=== PATIENT | female | born 1975 | race Caucasian/White ===

== ENCOUNTER 2024-01-23 10:09 | Outpatient (CLI) | payer BC, SELFPAY ==
--- NOTE | ~2024-01-23 | CT_ITS ---
EXAMINATION: CT abdomen pelvis w con DATE: 01/23/2024 10:38 INDICATION: Right lower quadrant abdominal pain. TECHNIQUE: Computed tomography (CT) of the abdomen and pelvis was performed with 100 mL Omnipaque 350 intravenous contrast. Automated exposure control and iterative reconstruction technique were employe d. The dose-length product was 1257.59 mGy-cm. COMPARISON: None. FINDINGS: The visualized portions of the lung bases demonstrate minimal atelectasis. There is a 7 mm nodule in right lower lobe. No pleural effusion. The heart size is normal. No pericardial effusion. T here is a small sliding hiatal hernia. The liver, spleen, pancreas, adrenal glands, and kidneys are n ormal. There are changes of cholecystectomy. There is an intrauterine device in expected position. Th ere is diverticulosis of the colon without evidence of diverticulitis. There are no dilated loops of bowel. The appendix is normal. There is a 3.3 cm intramural uterine fibroid. There are no pathologica lly enlarged lymph nodes. There is no free intraperitoneal fluid. There is severe lumbar spondylosis. IMPRESSION: 1. 7 mm nodule in right lung lower lobe, probably benign. Noncontrast low-dose chest CT is recommende d in 6 months. 2. Small sliding hiatal hernia. 3. Uterine fibroid. Reviewed, dictated and finalized at location [facility]. [facility] IMPRESSION: 1. 7 mm nodule in right lung lower lobe, probably benign. Noncontrast low-dose chest CT is recommended in 6 months. 2. Small sliding hiatal hernia. 3. Uterine fibroid.
== END 2024-01-23 10:10 | disposition home or self-care (01) ==
PROVIDERS: PCP Pediatrics; Visit Provider Family Medicine
DX: R91.1 Solitary pulmonary nodule (principal); K44.9 Diaphragmatic hernia without obstruction or gangrene; D25.9 Leiomyoma of uterus, unspecified; R10.31 Right lower quadrant pain; K35.80 Unspecified acute appendicitis
CPT/HCPCS: 74177; Q9967

== ENCOUNTER 2024-01-23 13:18 | Day surgery (SDC) | payer BC, SELFPAY ==
[2024-01-23] VITALS (8 sets, daily range): BP systolic 90–171; BP diastolic 60–103; PULSE 50–104; RESP 15–18; TEMP 36.6–36.8; O2SAT 97–100; BMI 33.9
--- NOTE | 2024-01-23 14:45 | ECG_ITS ---
Test Date: 2024-01-23 15:01:41 Measurements Intervals [place] Rate: 82 P: 52 [place]: 170 QRS: 8 QRSD: 98 T: -3 QT: 383 QTc: 448 Interpretive Statements SINUS RHYTHM MINIMAL Q WAVES- HIGH LATERAL LEADS BORDERLINE ST-T WAVE ABNORMALITY- INFERIOR LEADS BASELINE ARTIFACT- I, II, AVR BORDERLINE ECG No previous ECG available for comparison Electronically Signed On 01-23-2024 15:33:35 PEST TECHNICIAN by Alonso Wan D.O.
--- NOTE | 2024-01-23 15:03 | WPDANESEPPF ---
Anes - Initial Pre Proc Eval Procedure: Operation Date: 01/23/24 15:45 Proposed Procedures p Diagnostic Laparoscopy, Possible Laparoscopic Appendectomy - Gustabo Cobb MD Date/Time: 01/23/24 15:03 Surgeon: Gustabo Cobb MD Pre Op Diagnosis: abdominal pain, appendicitis Patient Data Age: 48 Gender: F Height: 1.75 m Weight: 104.1 kg Last Vital Signs Temp 36.6 C 01/23/24 14:14 Pulse 104 H 01/23/24 14:14 BP 171/103 H 01/23/24 14:14 Pulse Ox 97 01/23/24 14:14 O2 Del Method Room Air 01/23/24 14:14 Allergies Allergy/AdvReac Type Severity Reaction Status Date / Time codeine AdvReac Severe Hyperactive Verified 01/23/24 14:55 hydrocodone AdvReac Severe HYPER Verified 01/23/24 14:55 morphine AdvReac Mild Hyperactive Verified 01/23/24 14:55 FEELING Home Medications Medication Instructions Recorded Confirmed Type cetirizine 10 mg capsule (Zyrtec) 10 mg PO DAILY PRN allergies 01/23/24 01/23/24 History famotidine 40 mg tablet 40 mg PO DAILY 01/23/24 01/23/24 History multivitamin 1 tablet PO DAILY 01/23/24 01/23/24 History Patient hx anesthesia problems: post op nausea/vomiting Family hx anesthesia problems: none Results Review: All pre-operative results and documents have been reviewed as part of the pre-operative evaluation. [facility] Past Medical History Medical History (Updated 01/23/24 @ 15:09 by Conor Bolanos DO) History of atrial fibrillation Surgical History Surgical History (Updated 01/23/24 @ 12:28 by Merle Rodrigez CMA) H/O cardiac radiofrequency ablation 2020 Hx laparoscopic cholecystectomy Hx of section 1999, 2004 Family History Family History (Updated 01/23/24 @ 12:29 by Merle Rodrigez CMA) Father Hypertension Mother Diabetes mellitus Hypertension Uterine cancer Ovarian cancer Grandparent Diabetes mellitus Hypertension Heart disease Cerebrovascular accident Social History Social History (Updated 01/23/24 @ 12:29 by Merle Rodrigez CMA) Smoking packs per day: 1 Smoking cigarettes per day: 20.0 Years smoked: 11 Smoking pack-years: 11.00 Smoking status: Former smoker Tobacco type: cigarettes Alcohol intake: never Current Housing: Decline to Answer Concerned About Future Housing: Decline to Answer Difficulty Paying Gas/Electric Bills: Decline to Answer Difficulty Paying for Meds: Decline to Answer Currently Unemployed: Decline to Answer Education: Decline to Answer Difficulty w/ Childcare or Family Care: Decline to Answer Living arrangements: with family Spiritual care concerns: No Anes - Eval Final PreProcedure Day of Procedure 01/23/24 15:03 Patient weight: obese Heart: regular rate and rhythm Lungs: clear to auscultation Airway: Mallampati scale class II Neurological: alert and oriented Last oral intake: >/= 8 hours ASA classification: III Emergent: no Anesthetic plan: proceed Anesthesia type and monitoring: general ETT and standard monitoring Results Review: All pre-operative results and documents have been reviewed as part of the pre-operative evaluation. Informed Consent: The patient's anesthetic plan and its attendant risks and benefits were discussed with the patient/family/POA. Questions were solicited and answers provided to the satisfaction of the patient/family/POA.
[2024-01-23] MEDS: SCOPOLAMINE 1 MG PATCH 1 PATCH TRANSDERM (15:18)
[2024-01-23] MEDS: LACTATED RINGERS 1,000 ML 30 ML IV CONT ×2 (15:18→19:20)
--- NOTE | 2024-01-23 17:02 | WPDHPUPDATE1 ---
History and Physical Update Update Date/Time: 01/23/24 17:02 History and Physical has been reviewed, including an updated exam of the patient. There are NO changes in the patient's condition. Risks, benefits, and alternatives have been discussed and questions answered. Patient agrees to proceed with procedure.
[2024-01-23] MEDS: ceFAZolin 2 GM/D5W 50 ML 2 GM/50 ML BAG IVPB (17:06)
[2024-01-23] MEDS: metroNIDAZOLE 500 MG/ISO 100ML 500 MG/100 ML BAG 100 MG IVPB (17:15)
[2024-01-23] MEDS: BUPIVACAINE/EPINEPHRINE 0.5% 50 ML VIAL INFILTRATE (17:36)
[2024-01-23] MEDS: HYDROmorphone HCL INJ (*CRX) 1 MG/ML SYR 0.25 MG IV PUSH ×4 (18:11→18:28)
--- NOTE | 2024-01-23 18:34 | W.PM.PROC2 ---
Procedure Note - Detailed Date of Procedure 01/23/24 Pre-op Diagnosis abdominal pain, appendicitis Post-op Diagnosis Other (Right lower quadrant pain) Procedure Performed Diagnostic laparoscopy, laparoscopic appendectomy Surgeon Gustabo Cobb MD Industrial Registered Nurse Sil Anesthesia General and Local Indications Patient began developing right lower quadrant abdominal pain early this morning. It worsened and was quite severe. 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 Palacios. She had classic signs and symptoms of appendicitis, however her CT scan was negative for appendicitis or other diagnosis that could cause her pain. Her white blood cell count was normal and CMP was normal. She came to my office and was evaluated. She was feeling somewhat better but still had peritoneal signs of referred tenderness and rebound tenderness in the right lower quadrant. She is taken to surgery now for diagnostic laparoscopy possible appendectomy. Findings I could find no source for the patient's pain. Her appendix did not appear to be inflamed but the distal half of the appendix did seem to be thickened or mildly dilated. There was no hypervascularity or erythema. No evidence of mesenteric adenitis, ruptured ovarian cyst, or other explanation. No Meckel's diverticulitis or evidence of Crohn's ileitis was seen. She did have a fibroid, enlarged uterus. This is an unlikely source of her pain. Description of Procedure Patient was taken to the operating room and induced into general anesthesia. Laparoscopic trocars were placed on the left side of the abdomen in the usual fashion using an applied Medical optical trocar and placing 2 5 mm ports and a left lower quadrant 10 11 port. Patient was placed in Trendelenburg with the right-side elevated. The cecum and appendix were easily found. As noted above, the appendix was only mildly abnormal and did not appear consistent with appendicitis. I looked in the pelvis with the above findings. I took photographs of both tubes and ovaries. I looked for Meckel's diverticulum and did not find 1. I looked for any distal ileal pathology such as inflammatory bowel disease or mesenteric adenitis and did not see any evidence of either. The cecum also appeared normal. The mesentery appeared normal. I elevated the appendix and dissected the mesoappendix. The appendiceal artery was thoroughly cauterized and divided. I dissected the additional tissues of the mesoappendix and eventually skeletonized the base of the appendix. The appendix was ligated with a Vicryl endoloop at its base. Appendix was amputated just above the ligature. The mucosa of the appendiceal stump was cauterized. The appendix was placed immediately in an Endo-Catch bag and retrieved through the 10 11 left lower quadrant trocar site. It was passed off to pathology in formalin. The left lower quadrant trocar was replaced. Review reviewed the areas of dissection and appendix removal and took another look in the pelvis and right lower quadrant. No new findings were appreciated. We then evacuated CO2 and removed the trocar sleeves. Skin wounds were closed with subcuticular 4-0 Monocryl skin suture. 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 Estimated Blood Loss -5 Drains No Packing No Pathology Yes (Appendix) Complications None Condition Stable Disposition PACU [facility] Billing Surgery - Charge Forward: Surgery Billing (Diagnostic laparoscopy, laparoscopic appendectomy)
--- NOTE | 2024-01-23 18:42 | SUR.PHASEI ---
PT STATES PAIN FEELS GASSY DENIES PAIN MEDICATION AT THIS TIME.
[2024-01-23] MEDS: ONDANSETRON INJ 4 MG/2 ML VIAL IV PUSH (19:10)
[2024-01-23] MEDS: FAMOTIDINE 20 MG/2 ML VIAL IV PUSH (19:31)
[2024-01-23] MEDS: diphenhydrAMINE HCl INJ 50 MG/ML VIAL 25 MG IV PUSH (19:31)
== END 2024-01-23 20:10 | disposition home or self-care (01) ==
PROVIDERS: PCP Pediatrics; Visit Provider Surgery
PROC: 0DTJ4ZZ Resection of Appendix, Percutaneous Endoscopic Approach (ICD-10-PCS; CPT 44970; principal; 2024-01-23 15:45)
DX: R10.31 Right lower quadrant pain (principal); D25.9 Leiomyoma of uterus, unspecified; N85.2 Hypertrophy of uterus; I48.91 Unspecified atrial fibrillation; E66.9 Obesity, unspecified; Z68.33 Body mass index [BMI] 33.0-33.9, adult; Z98.890 Other specified postprocedural states; Z90.49 Acquired absence of other specified parts of digestive tract; Z87.891 Personal history of nicotine dependence; Z86.79 Personal history of other diseases of the circulatory system; Z80.49 Family history of malignant neoplasm of other genital organs; Z80.41 Family history of malignant neoplasm of ovary; Z82.49 Family history of ischemic heart disease and other diseases of the circulatory system
CPT/HCPCS: 44970; 88304; 93005; A9270; J0690; J1171; J1200; J1836; J2250; J2405; J3010; J7030; J7120

== ENCOUNTER 2024-05-19 11:03 | Outpatient (CLI) | payer BC, SELFPAY | END 2024-05-19 11:04 | disposition home or self-care (01) | PROVIDERS: PCP Pediatrics; Visit Provider Obstetrics & Gynecology | DX: D25.9 Leiomyoma of uterus, unspecified (principal) | CPT/HCPCS: 76830; 76856 ==

== ENCOUNTER 2024-08-18 08:19 | Outpatient (CLI) | payer OTHER, SELFPAY ==
--- NOTE | ~2024-08-18 | CT_ITS ---
CT Scan of the Chest without Contrast: Clinical Indication: Pulmonary nodule Technique: Contiguous sections were acquired throughout the chest without intravenous contrast. Dose reduction technique was used on this scan by utilizing automated exposure control and iterative recon struction technique. The dose-length product (DLP) was 126.14 mGy-cm. COMPARISON: 01/23/2024 Findings: There is no evidence of any significant mediastinal, hilar or axillary lymphadenopathy. The mediastin al soft tissues appear normal. There is no evidence of pleural or pericardial effusion. 9 mm mildly irregular right lower lobe pulmonary nodule present (axial image 76), unchanged. Images through the upper abdomen reveal no abnormalities. Impression: Stable 9 mm right lower lobe pulmonary nodule. Reviewed, dictated and finalized at location . Impression: Stable 9 mm right lower lobe pulmonary nodule.
== END 2024-08-18 08:20 | disposition home or self-care (01) ==
LOC: MICIMG 08:20
PROVIDERS: PCP Pediatrics; Visit Provider Family Medicine
DX: R91.1 Solitary pulmonary nodule (principal)
CPT/HCPCS: 71250

== ENCOUNTER 2025-03-16 12:11 | Outpatient (CLI) | payer OTHER, SELFPAY ==
--- NOTE | ~2025-03-16 | US_ITS ---
EXAMINATION: US FNA w image guidance DATE: 03/16/2025 13:24 INDICATION: Right thyroid nodule TECHNIQUE: A time-out was performed to verify the patient's name, date of , and procedure to be performed. The procedure and its benefits and risks were discussed with the patient. Risks specifically discussed included bleeding and infection. The patient understood the risks and agreed to proceed. The neck was prepped and draped in the usual sterile manner. 2 mL 1% lidocaine was used for local anesthesia. 5 passes were made with a 25G needle into the lesion. Appropriate needle location was documented with continuous sonographic guidance. A sterile bandage was applied. There were no immediate complications. FINDINGS: Grayscale ultrasound images demonstrate biopsy needles advanced into into a 1.3 cm solid hypoechoic nodule with irregular margins and internal shadowing calcifications at the right thyroid lobe (TI-RADS 5, highly suspicious , FNA if >=1.0 cm, annual followup is >0.5 cm). IMPRESSION: 1. Successful ultrasound-guided fine needle aspiration of a 1.3 cm TI RADS 5 right thyroid nodule. Reviewed, dictated and finalized at location A. NER IMPRESSION: 1. Successful ultrasound-guided fine needle aspiration of a 1.3 cm TI RADS 5 r ight thyroid nodule.
--- OUTSIDE RECORDS SUMMARY | 2025-03-16 12:37 | XMS_ITS | Encounter Summary ---
Author Organization [facility] Address [facility]ly [facility] [place] [address] Care Team Providers Care Clipper Operator Name Role Phone Armando Stephens MD Primary Care Provider [phone] Chase Walsh MD Unavailable [phone] Petra Pineda MD, Dell Unavailable [phone] Jewel Hawthorne MD Unavailable [phone] Salvatore Yeboah MD Unavailable [phone] Jamie Desir NP Unavailable [phone] Encounter Details Date Type Department Care Team (Late st Contact Info) Description 06/14/2014 Abstract [facility] [address] [place] [id number] Dell Lambert MD [address] [phone] Social History Tobacco Use Types Packs/Day Years Used Date Smoking Tobacco: Former Cigarettes Q uit: 03/2002 Alcohol Use Standard Drinks/Week Comments No 0 (1 standard drink = 0.6 oz pur e alcohol) Comments Unknown Sex and Gender Information Value Date Recorded Sex Assigned at Female 11/03/2024 2:01 PM CDT Legal Sex Female 11:53 PM CDT Gender Identity Not on file Sexual Orientation Not on file 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 Not on file Not on file 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 Not on file Not on file Not on file documented as of this encounter Plan of Treatment Upcoming Encounters Date Type Department Care Team (Late st Contact Info) Description 04/12/2025 1:00 AM IC DESIGN MANAGER Allied Health/Nurse Visit [address] [phone] Salvatore Yeboah MD [address] [place] [phone] 06/08/2025 9:45 AM CDT Allied Health/Nurse Visit [address] [phone] Salvatore Yeboah MD [address] [place] [phone] 06/08/2025 9:45 AM CDT Office Visit [address] [phone] Salvatore Yeboah MD [address] [place] [phone] documented as of this encounter Visit Diagnoses Not on filedocumented in this encounter Additional Health Concerns Infection Onset Date Last Indicated Resolved Time COVID-19 Rule Out 09/23/2019 09/29/2019 09/30/2019 6:28 PM CDT documented as of this encounter Care Teams Clipper Operator Relationship Specialty Start Date End Date Armando Stephens MD [address] [place] [address] PCP - General PEDIATRICS 09/26/15 Chase Walsh MD [address] [place] [phone] [employer] Instructor CARDIOVASCULAR DISEASE 01/28/17 08/26/24 Dell Lambert MD [address] [place] [phone] [employer] Instructor CARDIOVASCULAR DISEASE 04/30/17 Jewel Hawthorne MD [address] [place], [place] [phone] [employer] Instructor CARDIOVASCULAR DISEASE 07/24/21 11/27/22 Salvatore Yeboah MD [address] [place] [phone] Consulting Physician CLINICAL CARDIAC ELECTROPHYSIOLOGY 08/27/24 Jamie Desir NP [address] [place] [address] Nurse Practitioner NURSE PRACTITIONER 08/27/24 documented as of this encounter
--- OUTSIDE RECORDS SUMMARY | 2025-03-16 12:37 | XMS_ITS | Encounter Summary ---
Author Organization [facility] Address [facility] [place] [address] Care Team Providers Care Microeconomics Professor Name Role Phone Armando Stephens MD Primary Care Provider [phone] Petra Pineda MD, Dell Unavailable [phone] Salvatore Yeboah MD Unavailable [phone] Jamie Desir NP Unavailable [phone] Encounter Details Date Type Department Care Team (Late st Contact Info) Description 02/22/2025 Hospital Follow-up Call [facility] [address] [place] [address] Jess Post RN Social History Tobacco Use Types Packs/Day Years Used Date Smoking Tobacco: Former Cigarettes 0 03/18/1992 - 03/18/2002 Smokeless Tobacco: Never Alcohol Use Standard Drinks/Week Comments No 0 (1 standard drink = 0.6 oz pur e alcohol) Humiliation, Afraid, Rape, and Kick questionnair e Answer Date Recorded Within the last year, have y ou been afraid of your partner or ex-partner? No 02/18/2025 Within the last year, have y ou been humiliated or emotionally abused in other ways by your partner or ex-partner? No Within the last year, have y ou been kicked, hit, slapped, or otherwise physically hurt by your partner or ex-partner? No 02/18/2025 Within the last year, have y ou been raped or forced to have any kind of sexual activity by your partner or ex-partner? No 02/18/2025 Overall Financial Resource Strain (CARDIA) Answe r Date Recorded How hard is it for you to pa y for the very basics like food, housing, medical care, and heating? Not very hard 02/18/2025 Hunger Vital Sign Answer Date Recorded Within the past 12 months, y ou worried that your food would run out before you got the money to buy more. Never true 02/19/20 25 Within the past 12 months, t he food you bought just didn't last and you didn't have money to get more. Never true 02/18/2025 PRAPARE - Transportation Answer Date Re corded In the past 12 months, has l ack of transportation kept you from medical appointments or from getting medications? No 06/2024 In the past 12 months, has l ack of transportation kept you from meetings, work, or from getting things needed for daily living? No 02/18/2025 Housing Stability Vital Sign Answer Nitish e Recorded In the last 12 months, was t here a time when you were not able to pay the mortgage or rent on time? No 02/18/2025 In the past 12 months, how m any times have you moved where you were living? 0 02/18/2025 At any time in the past [address] [facility], were you homeless or living in a assisted (including now)? No 02/18/2025 [facility] Utilities Answer Date Recorded In the past 12 months has th e electric, gas, oil, or water company threatened to shut off services in your home? No 02/18/2025 Comments No Sex and Gender Information Value Date Recorded [...] on file documented as of this encounter Functional Status * Are you deaf or do you have serious difficulty hearing Answer Date of Assessment Author Status No 02/18/2025 8:34 AM Kathrine Olson, RN Active * Are you blind or do you have serious difficulty seeing, even when wearing glasses? Answer Date of Assessment Author Status No 02/18/2025 8:34 AM Kathrine Olson RN Active * Do you have serious difficulty walking or climbing stairs? Answer Date of Assessment Author Status No 02/18/2025 8:34 AM Kathrine Olson RN Active * Do you have difficulty dressing or bathing? Answer Date of Assessment Author Status No 02/18/2025 8:34 AM Kathrine Olson RN Active * Because of a physical, mental, or emotional condition, do you have difficulty doing errands alone such as visiting a doctor's office or shopping? Answer Date of Assessment Author Status No 02/18/2025 8:34 AM Kathrine Olson RN Active documented as of this encounter Mental Status * Because of a physical, mental, or emotional condition, do you have serious difficulty concentrating, remembering, or making decisions? Answer Entry Date Author Status No 02/18/2025 8:34 AM Kathrine Olson RN Active documented in this encounter Plan of Treatment Upcoming Encounters Date Type Department Care Team (Late st Contact Info) Description 04/12/2025 1:00 AM BAND SINGER Allied Health/Nurse Visit [address] [phone] Salvatore Yeboah MD [address] [place] [phone] 06/08/2025 9:45 AM CDT Allied Health/Nurse Visit [address] [phone] Salvatore Yeboah MD [address] [place] [phone] 06/08/2025 9:45 AM CDT Office Visit [address] [phone] Salvatore Yeboah MD [address] [place] [phone] documented as of this encounter Visit Diagnoses Not on filedocumented in this encounter Care Teams Microeconomics Professor Relationship Specialty Start Date End Date Armando Stephens MD [address] [place], [place] [phone] PCP - General PEDIATRICS 09/26/15 Dell Lambert MD [address] [place] [address] [employer] Strategy Director CARDIOVASCULAR DISEASE 04/30/17 Salvatore Yeboah MD [address] [facility] [address] [address] Consulting Physician CLINICAL CARDIAC ELECTROPHYSIOLOGY 08/27/24 Jamie Desir NP [address] [place] [address] Nurse Practitioner NURSE PRACTITIONER 08/27/24 documented as of this encounter
--- OUTSIDE RECORDS SUMMARY | 2025-03-16 12:37 | XMS_ITS | Patient Health Record ---
Author Organization [facility] Address [address] [place] [address] Care Team Providers Care Labor Conciliator Name Role Phone Dr. Lawrence Grant Primary Care Provider [id number] [phone] Dr. Kayla Palacios Unavailable [phone] Gokul Owusu Unavailable [phone] Corazon Gates Unavailable [phone] Allergies Allergen (clinical drug ingredient) Drug/Non Drug Allergy documented on EMR Reaction Allergy Type Onset Date Status amoxicillin / clavulanate Augmentin ES-600 itching Drug Allergy 11/06/2023 Active fentanyl fentaNYL dizziness chills Drug Allergy 03/21/2021 Active penicillin V Penicillin V Potassium itching Drug Allergy 11/06/2023 Active apple allergenic extract Apple (Diagnostic) Unknown Drug Allergy 03/01/2022 Active Skin Adhesive (external) rash blisters from heart monitor adhesive Allergy 03/01/2022 Active Results Component Value Reference Range Flag Notes ECG 12-LEAD Reviewed date:01/04/2025 08:54:24 AM Interpretation: Performing Lab: Notes/Report: HFG Test Date: 2025-01-03 Pat Name: ILA BRUSH Department: 100 Room: ED4 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 [address] Examination: X-ray chest, 1 view Exam time: 01/03/2025 at 0735 hours Clinical history: Chest pain.Chest pressure/pain x 3-5am this morning. Comparison: 11/07/2019 Technique: Single frontal upright view of the chest obtained. FINDINGS: No parenchymal consolidation. No discrete pneumothorax or large pleural effusion. Cardiomediastinal silhouette unchanged. Loop recorder device. IMPRESSION: No acute findings. 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 : 1975 Requested By: WILLIAN VERDUGO Order Number: [id number] Reading MD: Darvin Mckeon Measurements Intervals [place] Rate: 76 P: 0 OR: 0 QRS: 5 QRSD: 98 T: 11 QT: 378 QTc: 427 Interpretive Statements ATRIAL FIBRILLATION ABNORMAL RHYTHM ECG PET EYE TO THIGH (Not yet re viewed by provider) Interpretation: Performing Lab: Notes/Report: Covid DNA Alere Reviewed date:11/20/2024 08:24:59 AM Interpretation:Negative Performing Lab: Notes/Report: Negative MAMMOGRAM, SCREENING Reviewed date:08/28/2024 09:26:02 AM Interpretation:BiRads 2 Performing Lab: Notes/Report: BiRads 2 US THYROID Reviewed date:03/05/2025 05:50:22 PM Interpretation: Performing Lab: Notes/Report: [address] [place] [address] ULTRASOUND OF THE THYROID CLINICAL HISTORY: Thyroid nodule High-resolution grayscale and color Doppler ultrasound was performed over the thyroid. COMPARISON: None FINDINGS: Right lobe: 5.3 x 2.2 x 1.4 cm in greatest dimensions Left lobe: 4.7 x 1.8 x 1.1 cm Isthmus: 3.9 mm in thickness The overall size of the gland is within normal limits. On the right there is an irregular hypoechoic nodule that measures 1.1 x 1.3 x 1.0 cm in greatest dimensions. The overall appearance is nonspecific. Reportedly, this nodule is FDG avid and therefore biopsy could be considered but may be difficult or nondiagnostic due to the small size. No additional nodules are observed. The surrounding soft tissues appear normal IMPRESSION: 1.Irregular probably hypoechoic nodule within the mid right thyroid. 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1975 Requested By: WILLIAN VERDUGO Order Number: [id number] Reading MD: Darvin Mckeon Measurements Intervals [place] Rate: 97 P: 47 OR: 166 QRS: 28 QRSD: 93 T: 31 QT: 346 QTc: 441 Interpretive Statements SINUS RHYTHM Vitamin B12 Reviewed date:10/09/2024 09:28:10 PM Interpretation: Performing Lab: Notes/Report: Test Performed by: [address] [address] Wind Site Manager: Dell Xavier DO Vitamin B12 Lvl 469 180-914 pg/mL Vitamin B12 Interpretation: Normal Range: 180-914 pg/mL Indeterminate: 140-180 pg/mL Deficient: <140 pg/mL Magnesium Reviewed date:10/09/2024 09:28:10 PM Interpretation: Performing Lab: Notes/Report: Test Performed by: [address] [place] [address] Wind Site Manager: Dell Xavier DO Magnesium Lvl 2.0 1.6-2.4 mg/dL Lipid Panel {Chol, Trig, HDL , LDL} Reviewed date:10/09/2024 09:28:10 PM Interpretation: Performing Lab: Notes/Report: Test Performed by: [place] [address] Wind Site Manager: Dell Xavier DO Cholesterol Total 171 <=199 mg/dL Triglycerides 127 0-149 mg/dL Triglyceride Reference Ranges: <150 mg/dL Normal 150 - 199 mg/dL Borderline High 200 - 499 mg/dL High >=500 mg/dL Very High LDL 107 <=100 mg/dL H LDL Optimal: <100 Near or above optimal: 100-129 Borderline high: 130-159 High: 160-189 Very high: >=190 Coronary heart disease risk factors should be considered when determining LDL goals. Please refer to ATPIII guidelines for further information. If LDL is not calculated, please call the lab to add on the direct LDL methodology, if desired. HDL 38 23-92 mg/dL Non HDL Cholesterol 132 <=130 mg/dL H Chol/HDL 4 0-5 Comprehensive Metabolic Pane l Reviewed date:10/09/2024 09:28:10 PM Interpretation: Performing Lab: Notes/Report: Test Performed by: [place] [id number] Wind Site Manager: Dell Xavier DO Glucose Lvl 91 74-109 mg/dL ADA risk stratification for diabetes <100 mg/dL = Normal 100-125 mg/dL = Increased risk for future diabetes >=126 mg/dL = Diabetes, if on more than one testing occasion BUN 14 7-25 mg/dL Creatinine Lvl 0.70 0.60-1.20 mg/dL eGFR CKD-EPI >90 >=90 mL/min/1.73 m2 The CKD-EPI equation is validated in individuals 18 years of age and older. It is less accurate in patients with extremes of muscle mass, restriction of dietary protein, ingestion of creatine, extra-renal metabolism of creatinine, or treatment with medications that affect renal tubular creatinine secretion. GFR Categories in Chronic Kidney Disease (CKD) GFR GFR (mL/min/1.73 Category: square meters): Interpretation: G1 90 or greater Normal or high* G2 60-89 Mild decrease* G3a 45-59 Mild to moderate decrease G3b 30-44 Moderate to severe decrease G4 15-29 Severe decrease G5 14 or less Kidney failure *In the absence of evidence of kidney damage, neither GFR category G1 nor G2 fulfill the criteria for CKD (Kidney Int Suppl 2013;3:1-150) Calcium Lvl 9.6 8.6-10.3 mg/dL Sodium Lvl 139 136-145 mmol/L Potassium Lvl 3.8 3.5-5.1 mmol/L Chloride Lvl 103 98-107 mmol/L CO2 30 21-31 mmol/L Anion Gap 6.5 <=16.0 mmol/L Alk Phos 57 34-104 unit/L Bilirubin Total 0.7 0.3-1.0 mg/dL Albumin Lvl 4.6 3.5-5.2 g/dL Protein Total 7.2 6.4-8.9 g/dL Albumin/Globulin Ratio 1.8 1.1-2.5 ALT 14 7-52 unit/L AST 13 13-39 unit/L CBC w Auto Diff Reviewed date:10/09/2024 09:28:10 PM Interpretation: Performing Lab: Notes/Report: Test Performed by: [place] [address] Wind Site Manager: Dell Xavier DO WBC 6.3 4.0-11.7 K/mcL RBC 4.76 3.80-5.41 x10*6/mcL Hgb 14.4 11.3-15.2 g/dL Hct 41.4 33.2-45.3 % MCV 87.0 79.5-98.1 fL MCH 30.2 27.0-34.2 pg MCHC 34.7 31.8-35.3 g/dL RDW 13.7 12.0-16.4 % Platelets 241 149-393 K/mcL MPV 9.8 7.0-11.0 fL Neutro Auto 59.1 45.3-79.0 % Lymph Auto 30.8 11.8-45.9 % [place] Auto 8.3 4.4-12.0 % Eosinophil Auto 1.5 0.0-6.3 % Basophil Auto 0.3 0.2-1.6 % Neutro Absolute 3.7 2.4-8.4 x10*3/mcL Lymph Absolute 1.9 0.8-3.7 x10*3/mcL [place] Absolute 0.5 0.3-1.1 x10*3/mcL Eos Absolute 0.1 0.0-0.5 x10*3/mcL RP2 Panel Reviewed date:03/03/2025 08:21:54 AM Interpretation: Performing Lab: Notes/Report: Test Performed by: [place] [id number] Wind Site Manager: Dell Xavier DO Adenovirus PCR Not Detected Not Detected Bordetella pertussis PCR Not Detected Not Detected Bordetella Parapertussis [id number] PCR Not Detected Not Detected Chlamydophila pneumoniae PCR Not Detected Not Detected Coronavirus 229E PCR Not Detected Not Detected Coronavirus HKU1 PCR Not Detected Not Detected Coronavirus NL63 PCR Not Detected Not Detected Coronavirus OC43 PCR Not Detected Not Detected SARS-CoV-2 PCR Not Detected Not Detected Human Metapneumovirus PCR Not Detected Not Detected Human Rhinovirus PCR Detected Not Detected A Influenza A PCR Not Detected Not Detected Influenza B PCR Not Detected Not Detected Parainfluenza Virus 1 PCR Not Detected Not Detected Parainfluenza Virus 2 PCR Not Detected Not Detected Parainfluenza Virus 3 PCR Not Detected Not Detected Parainfluenza Virus 4 PCR Not Detected Not Detected Respiratory Syncytial Virus PCR Not Detected Not Detected Mycoplasma pneumoniae PCR Not Detected Not Detected ABBT Coronavirus [facility] {COVI D-19} Reviewed date:03/03/2025 08:21:54 AM Interpretation: Performing Lab: Notes/Report: Test performed at [address] [address] [facility]#[id number] Test Performed by: [address] [address] Wind Site Manager: Dell Xavier DO SARS-CoV-2 (Covid19) ABBT Negative Negative ID NOW COVID-19 assay performed on the ID NOW Instrument is a rapid molecular in vitro diagnostic test utilizing an isothermal nucleic acid amplification technology intended for the qualitative detection of nucleic acid from the SARS-CoV-2 viral RNA in direct nasal, nasopharyngeal or throat swabs from individuals who are suspected of COVID-19 by their healthcare provider within the first seven days of the onset of symptoms. Results are for the identification of SARS-CoV-2 RNA. The [id number] is generally detectable in respiratory samples during the acute phase of infection. Positive results are indicative of the presence of SARS-CoV-2 RNA; clinical correlation with patient history and other diagnostic information is necessary to determine patient infection status. Positive results do not rule out bacterial infection or co-infection with other viruses. Negative results should be treated as presumptive and, if inconsistent with clinical signs and symptoms or necessary for patient management, should be tested with different authorized or cleared molecular tests. Negative results do not preclude SARS-CoV-2 infection and should not be used as the sole basis for patient management decisions. Negative results should be considered in the context of a patient?s recent exposures, history and the presence of clinical signs and symptoms consistent with COVID-19. The ID NOW COVID-19 test is only for use under the Food and Drug Administration?s Emergency Use Authorization. Covid 19 Perform Location [facility] Miscellaneous Lab Test 1 Reviewed date:03/03/2025 08:21:54 AM Interpretation: Performing Lab: Notes/Report: Test Performed by: [place] [id number] Wind Site Manager: Dell Xavier DO [facility] Lab: Result Misc Reordered MRI : Lumbosacral Spines Reviewed date:12/11/2024 11:56:24 AM Interpretation:not completed, denied by insurance. Performing Lab: Notes/Report: not completed, denied by insurance. Hemoglobin Reviewed date:12/10/2024 10:19:27 AM Interpretation:12.3 Performing Lab: Notes/Report: 12.3 MRI : Brain Reviewed date:12/18/2024 02:50:42 PM Interpretation: Performing Lab: Notes/Report: FSH LH Profile Reviewed date:12/10/2024 11:09:33 AM Interpretation: Performing Lab: Notes/Report: Test Performed by: [address] [address] Wind Site Manager: Dell Xavier DO FSH 79.3 FSH Normal Ranges: Females Follicular: 4 - 13 mIU/mL Midcycle: 5 - 22 mIU/mL Luteal: 1.5 - 9.1 mIU/mL : <1.0 mIU/mL Postmenopausal: 20-138 mIU/mL Males: 1.5 - 12.4 mIU/mL LH 22.4 LH Normal Ranges: Females Follicular: 1.7 - 15.0 mIU/mL Midcycle: 19.2 - 103.3 mIU/mL Luteal: 1.2 - 12.9 mIU/mL : <16 mIU/mL Postmenopausal: 10.9 - 58.6 mIU/mL Males: 1.24 - 8.62 mIU/mL Thyroid Stimulating Hormone Reviewed date:12/10/2024 11:09:33 AM Interpretation: Performing Lab: Notes/Report: Test Performed by: [place] [address] Wind Site Manager: Dell Xavier DO TSH 0.93 0.45-5.33 mcIU/mL Comprehensive Metabolic Pane l Reviewed date:12/10/2024 11:09:33 AM Interpretation: Performing Lab: Notes/Report: Test Performed by: [place] [address] Wind Site Manager: Dell Xavier DO Glucose Lvl 93 74-109 mg/dL ADA risk stratification for diabetes <100 mg/dL = Normal 100-125 mg/dL = Increased risk for future diabetes >=126 mg/dL = Diabetes, if on more than one testing occasion BUN 14 7-25 mg/dL Creatinine Lvl 0.66 0.60-1.20 mg/dL eGFR CKD-EPI >90 >=90 mL/min/1.73 m2 The CKD-EPI equation is validated in individuals 18 years of age and older. It is less accurate in patients with extremes of muscle mass, restriction of dietary protein, ingestion of creatine, extra-renal metabolism of creatinine, or treatment with medications that affect renal tubular creatinine secretion. GFR Categories in Chronic Kidney Disease (CKD) GFR GFR (mL/min/1.73 Category: square meters): Interpretation: G1 90 or greater Normal or high* G2 60-89 Mild decrease* G3a 45-59 Mild to moderate decrease G3b 30-44 Moderate to severe decrease G4 15-29 Severe decrease G5 14 or less Kidney failure *In the absence of evidence of kidney damage, neither GFR category G1 nor G2 fulfill the criteria for CKD (Kidney Int Suppl 2013;3:1-150) Calcium Lvl 9.4 8.6-10.3 mg/dL Sodium Lvl 136 136-145 mmol/L Potassium Lvl 3.6 3.5-5.1 mmol/L Chloride Lvl 101 98-107 mmol/L CO2 27 21-31 mmol/L Anion Gap 8.2 <=16.0 mmol/L Alk Phos 61 34-104 unit/L Bilirubin Total 0.8 0.3-1.0 mg/dL Albumin Lvl 4.5 3.5-5.2 g/dL Protein Total 6.9 6.4-8.9 g/dL Albumin/Globulin Ratio 1.9 1.1-2.5 ALT 13 7-52 unit/L AST 14 13-39 unit/L Vitamin D 25 Hydroxy Reviewed date:12/10/2024 11:09:33 AM Interpretation: Performing Lab: Notes/Report: Test Performed by: [place] [id number] Wind Site Manager: Dell Xavier DO Vitamin D 25 OH 53 30-100 ng/mL Vitamin D25 Interpretation: Deficient: <= 20 ng/mL Insufficient: 21-29 ng/mL Sufficient: 30-100 ng/mL Upper Safety Limit: >100 ng/mL Erythrocyte Sedimentation Ra te Reviewed date:12/10/2024 11:09:33 AM Interpretation: Performing Lab: Notes/Report: Test Performed by: [place] [id number] Wind Site Manager: Dell Xavier DO ESR, Westergren 8 0-20 mm/hr Reason For Referral Reason Recurrent low back p ain Diagnosis 1 Low back pain, unspe cified (M54.50) Referral Organization [facility] Referring Provider First Name Dr. Roberts Referring Provider Last Name Angelo Referring Provider Speciality Pediatrics Referred Provider Specialty Physical The rapist Referral Priority Routine Reason Due for colon cancer screening. No prior. Concern for chronic GERD and gastritis with epigastric pain, would like EGD completed as well. Diagnosis 1 Encounter for screen ing for malignant neoplasm of colon (Z12.11) Diagnosis 2 Gastro-esophageal re flux disease without esophagitis (K21.9) Diagnosis 3 Generalized abdomina l pain (R10.84) Referral Organization [facility] Referring Provider First Name Gokul Referring Provider Last Name Umer Referring Provider Speciality Physician Oracle Application Consultant Referred Provider Willie Crooks Referred Provider Specialty Gastroentero logy General Notes Merle Mills 0 08/14/2024 02:53:59 PM CDT >Referral faxed to Dr. Crooks [phone], Merle Mills 08/18/2024 10:31:30 AM CDT >Pt scheduled for 09/22/24 Referral Priority Routine Referral Appointment Date 09/22/2024 Reason Thyroid nodule with abnormal PET scan. SBL provider please. Diagnosis 1 Thyroid nodule (E04. 1) Diagnosis 2 Abnormal positron em ission tomography (PET) scan (R94.8) Referral Organization [facility] Referring Provider First Name Dr. Roberts Referring Provider Last Name Angelo Referring Provider Speciality Pediatrics Referred Provider Specialty Ear, nose an d throat surgeon General Notes Merle Mills 1 05/06/2024 08:56:08 AM CATERING ADMINISTRATIVE ASSISTANT >Pt completing thyroid u/s at [facility]. Pt will be on [facility] insurance as of 03/18/25., Merle Mills 03/05/2025 08:56:35 AM CATERING ADMINISTRATIVE ASSISTANT >Called ENT office and was told pt could be seen d/t being [facility] employee as of Mar 2025.Gene Jessica 03/05/2025 09:06:11 AM CATERING ADMINISTRATIVE ASSISTANT >Referral faxed to [facility] ENT [phone] Brooke 03/05/2025 11:30:22 AM CATERING ADMINISTRATIVE ASSISTANT >[facility] ENT [facility] is currently at max capacity so they are not accepting new patients at this time. They will only see patients for voice, airway and swallowing issues at this time.Gene Jessica 03/05/2025 11:42:21 AM CATERING ADMINISTRATIVE ASSISTANT >Called office back and got fax number to [place] office. This is office I spoke with and they said to refax referral to their office.Gene Jessica 03/05/2025 11:46:50 AM CATERING ADMINISTRATIVE ASSISTANT >Faxed [phone] Jessica 03/08/2025 03:31:14 PM CATERING ADMINISTRATIVE ASSISTANT >Thyroid report faxed to ENT Referral Priority Urgent Reason pulmonary nodule wit h abnormal PET. SBL provider please, any location. Diagnosis 1 Solitary pulmonary n odule (R91.1) Referral Organization [facility] Referring Provider First Name Dr. Roberts Referring Provider Last Name Angelo Referring Provider Speciality Pediatrics Referred Provider Specialty Pulmonology General Notes Gene Merle 1 05/06/2024 09:11:17 AM CATERING ADMINISTRATIVE ASSISTANT >Referral faxed to Dr. Mcduffie [phone] Jessica 03/05/2025 10:36:15 AM CATERING ADMINISTRATIVE ASSISTANT >Dr. Mcduffie's office called. They are requesting pt have a PFT completed prior to being seen. They also asked that we reach out to where pt had imaging completed to request they push imaging. Called [facility] and spoke with radiology. They are pushing PET results to [facility] via Gene Rucker Jessica 03/05/2025 11:27:45 AM CATERING ADMINISTRATIVE ASSISTANT >Pt scheduled for 04/29/25 @ Referral Priority Urgent Medications Medication SIG (Take, Route, Frequency, Duration) Notes Start Date End Date Status predniSONE 20 MG Tablet 2 tablets Orally Once a day; Duration: 5 days start tomorrow 12/19/24. Take with food 12/18/2024 Not-Taking dilTIAZem HCl ER 120 MG Capsule Extended Release 24 Hour TAKE 1 CAPSULE BY MOUTH ONCE A DAY IN THE MORNING ON AN EMPTY STOMACH; Duration: 90 Active Naproxen 500 MG Tablet 1 TABLET ORAL TWO TIMES A DAY; Duration: 30 Active Pantoprazole Sodium 40 MG Tablet Delayed Release 1 TABLET ONE HALF (1/2) TO 1 HOUR BEFORE MORNING MEAL ORALLY ONCE A DAY; Duration: 30 Active Xarelto 20 MG Tablet 1 tablet with food Orally Once a day Active Vitamin D3 50 MCG (2000 UT) Capsule 1 capsule Orally Once a day Active dexAMETHasone 6 MG Tablet 1 tablet Orally Once a day; Duration: 1 days 11/20/2024 Not-Taking Cetirizine HCl 10 MG Tablet 1 Oral every morning; Duration: 0 03/21/2021 Active Eliquis 5 MG Tablet 1 tablet Orally twice a day Prescribed by Cardiology 10/21/2024 Not-Taking Multivitamin oral; Duration: 0 *Pick strength-form from [employer] for eRX* 03/01/2022 Active predniSONE 20 MG Tablet 2 tablet Orally Once a day; Duration: 5 days 03/20/2024 Not-Taking Maxalt 10 MG Tablet 1 tablet Orally daily; Duration: 30 days As needed 12/09/2024 Not-Taking Magnesium 400 MG Tablet 1 tablet Orally daily at bedtime; Duration: 30 days 12/18/2024 Not-Taking Amitriptyline HCl 25 MG Tablet 1 tablet at bedtime Orally Once a day; Duration: 30 days 12/25/2024 Active Nurtec 75 MG Tablet Disintegrating 1 tablet on the tongue and allow to dissolve Orally every other day; Duration: 30 days 12/25/2024 Active Immunizations Vaccine Route Administration Date Status Comme nts Influenza 6mo+ IM Intramuscular 01/11/2025 Administered Influenza, quadrivalent (IIV4), split virus, 6-35 months dosage IM Intramuscular 02/07/2021 Administered ,sourcename : N ew immunization record ,immstatus : Complete Influenza, quadrivalent (IIV4), split virus, 6-35 months dosage IM Intramuscular 01/01/2022 Administered ,sourcename : N ew immunization record ,immstatus : Complete Influenza, quadrivalent (IIV4), split virus, 6-35 months dosage IM Intramuscular 01/11/2023 Administered ,sourcename : N ew immunization record ,immstatus : Complete Influenza, seasonal, injectable, preservative free, 3 yrs and above IM Intramuscular 01/02/2024 Administered ,sourcename : N ew immunization record ,immstatus : Complete Social History Tobacco Use: Social History Observation Description Date Details (start date - stop date) Former Smoker NA - NA Social History Household: Social Info Question Answer Notes Household Marital status: Tobacco Use: Social Info Question Answer Notes Tobacco Control (Standard) Tobacco use: Former smoker Additional Details Category Social Info Options Details Miscellaneous: 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 No Section Notes: smoked for 10 yrs 1 PPD Problems Problem Type SNOMED Code ICD Code Onset Dates Problem Status W/U Status Risk Notes Problem Thyroid nodule (877775118) Thyroid nodule (E04.1) Active confirmed Problem Atrial fibrillation (52294206) Atrial fibrillation with RVR (I48.91) Active confirmed Problem Abnormal positron emission tomography (PET) scan (R94.8) Active confirmed Problem Vitamin B deficiency (87724952) Vitamin B deficiency, unspecified (E53.9) 2 Active confirmed Problem Pain in thoracic spine (842517348) Pain in thoracic spine (M54.6) 8 Active confirmed Problem Chest pain (15024403) Chest pain, unspecified (R07.9) 2 Active confirmed Problem Fatigue (26238763) Other fatigue (R53.83) 2 Active confirmed Problem Vaccination given (395669533) Encounter for immunization (Z23) 4 Active confirmed Problem Headache (43419200) Headache, unspecified (R51.9) 2 Active confirmed Problem Low back pain (084239854) Low back pain, unspecified (M54.50) 2 Active confirmed Problem Dietary management surveillance (904989789) Dietary counseling and surveillance (Z71.3) 4 Inactive confirmed Problem Encounter for screening for COVID-19 (Z11.52) 2 Inactive confirmed Problem Adult health examination (015054877) Encounter for general adult medical examination without abnormal findings (Z00.00) 2 Inactive confirmed Problem Solitary pulmonary nodule (513030274) Solitary pulmonary nodule (R91.1) 4 Active confirmed Problem Syncope and collapse (746829624) Syncope and collapse (R55) 8 Active confirmed Problem Right lower quadrant pain (663814270) Right lower quadrant pain (R10.31) 4 Active confirmed Problem Cervicalgia (26399081) Cervicalgia (M54.2) 3 Active confirmed Problem Pain of left knee joint (finding) (863195047410641 ) Pain in left knee (M25.562) 3 Active confirmed Problem Gastro-esophagea l reflux disease without esophagitis (879487166) Gastro-esophagea l reflux disease without esophagitis (K21.9) 2 Active confirmed Problem Paroxysmal atrial fibrillation (145619127) Paroxysmal atrial fibrillation (I48.0) 6 Active confirmed Problem Obesity (085159166) Obesity, unspecified (E66.9) 2 Active confirmed Problem Allergic rhinitis (78675989) Allergic rhinitis, unspecified (J30.9) Active confirmed Problem Solitary pulmonary nodule (204337370) Nodule of lower lobe of right lung (R91.1) Active confirmed Problem Vitamin D deficiency (86941927) Vitamin D deficiency (E55.9) Active confirmed Problem Skin sensation disturbance (02514317) Other disturbances of skin sensation (R20.8) 8 Active confirmed Problem Paresthesia (finding) (64219886) Paresthesia of skin (R20.2) 2 Active confirmed Problem Generalized abdominal pain ([id number]) Generalized abdominal pain (R10.84) 2 Active confirmed Problem Shoulder joint pain (952273240) Pain in unspecified shoulder (M25.519) 9 Active confirmed Problem Acute migraine ([id number] ) Acute migraine (G43.909) Active confirmed Problem Acute appendicitis ([id number]) Unspecified acute appendicitis (K35.80) 4 Active confirmed Vital Signs Heart Rate 98 /min 02/25/2025 Temperature 98.7 degrees Fahrenheit 02/25/2025 Respiratory Rate 18 /min 12/18/2024 Blood pressure diastolic 82 mm Hg 02/25/2025 Oximetry 99 % 02/25/2025 Blood pressure systolic 128 mm Hg 02/25/2025 Procedures Procedure Date Ordered Date Performed Result Body Sit e COLONOSCOPY AND BIOPSY 09/22/2024 09/22/2024 N/A Encounters Encounter Location Date Provider Diagnosis [address] [address] 06/01/2024 Dr. Lawrence Grant Rosacea L71.[address] [address] 06/29/[address] [address] 07/22/2024 [facility] Generalized abdominal pain R10.84 and Gastro-esophageal reflux disease without esophagitis K21.[address] [address] 08/03/2024 Dr. Lawrence Grant Acute bilateral low back pain with left-sided sciatica M54.[address] [address] 08/13/2024 Gokul Umer Generalized abdominal pain R10.84 ; Gastro-esophageal reflux disease without esophagitis K21.9 and Encounter for screening for malignant neoplasm of colon Z12.[address] [address] 11/20/2024 Corazon Kody Allergic rhinitis, unspecified J30.[address] [address] 12/09/2024 Dr. Lawrence Grant Recurrent headache R51.9 and Vitamin D deficiency E55.[address] [address] 12/18/2024 Dr. Kayla Palacois Acute migraine G43.909 ; Acute non-recurrent sinusitis, unspecified location J01.90 and Strain of neck muscle, initial encounter S16.1XXA [address] [address] 01/04/2025 Dr. Lawrence Grant Atrial fibrillation with RVR I48.91 ; Headache, unspecified R51.9 and Jaw pain R68.[address] [address] 01/11/2025 Dr. Lawrence Grant Encounter for immunization Z23 [address] [address] 02/22/2025 Dr. Lawrence Grant Paroxysmal atrial fibrillation I48.0 and Chest pain, unspecified R07.[address] [address] 02/25/2025 Gokul Umer Cough, unspecified type R05.[address] [address] 02/01/2025 Dr. Kayla Palacios [address] [address] 03/20/2024 Gokul Umer Acute cough R05.[address] [address] 06/18/2024 Dr. Lawrence Grant Annual physical exam Z00.[address] [address] 10/09/2024 Dr. Lawrence Grant Vitamin B deficiency, unspecified E53.9 ; Gastro-esophageal reflux disease without esophagitis K21.9 and Encounter for general adult medical examination without abnormal findings Z00.00 [facility] [address] [place] [address] 10/09/2024 Dr. Lawrence Grant [facility] [address] [place] [address] 10/21/2024 Dr. Lawrence Grant [facility] [address] [place] [address] 11/03/2024 Dr. Lawrence Grant [facility] [address] [place] [address] 11/30/2024 Dr. Lawrence Grant [address] [address] 12/10/2024 Dr. Lawrence Grant Headache, unspecified R51.9 [facility] [address] [place] [address] 12/10/2024 Dr. Lawrence Grant [address] [address] 12/11/2024 Dr. Lawrence Grant [address] [address] 12/16/2024 Dr. Lawrence Grant [address] [address] 12/25/2024 Dr. Lawrence Grant [facility] [address] [place] [address] 12/25/2024 Dr. Lawrence Grant [address] [address] 12/25/2024 Dr. Lawrence Grant [address] [address] 01/05/2025 Dr. Lawrence Garnt [address] [address] 01/07/2025 Dr. Lawrence Grant [address] [address] 01/18/2025 Dr. Lawrence Grant [address] [address] 01/19/2025 Dr. Lawrence Grant [address] [address] 01/21/2025 Dr. Lawrence Grant [address] [address] 02/10/2025 Dr. Lawrence Grant [address] [address] 02/10/2025 Dr. Lawrence Grant [address] [address] 03/01/2025 Dr. Lawrence Grant Nodule of lower lobe of right lung R91.[address] [address] 03/01/2025 Dr. Lawrence Grant Nodule of lower lobe of right lung R91.[address] [address] 03/05/2025 Dr. Lawrence Grant Thyroid nodule E04.1 and Solitary pulmonary nodule R91.[address] [address] 03/05/2025 Dr. Lawrence Grant [address] [address] 03/05/2025 Dr. Lawrence Grant Solitary pulmonary nodule R91.1 and Abnormal positron emission tomography (PET) scan R94.[address] [address] 03/05/2025 Dr. Lawrence Grant Thyroid nodule E04.[address] [address] 03/08/2025 Dr. Lawrence Grant Thyroid nodule E04.[address] [address] 04/02/2024 Dr. Lawrence Grant Assessments Encounter Date Diagnosis (ICD Code) Assessment Notes Treatment Notes Treatment Clinical Notes Section Notes 11/20/2024 Allergic rhinitis, unspecified (ICD-10 - J30.9) -Exam good. URI vs allergic rhinitis. Will give 1 time dose of dex 6mg orally x1. Recommend Flonase and continue Zyrtec. Karuna Ponce was negative. 12/10/2024 Headache, unspecified (ICD-10 - R51.9) 03/01/2025 Nodule of lower lobe of right lung (ICD-10 - R91.1) 03/01/2025 Nodule of lower lobe of right lung (ICD-10 - R91.1) 03/05/2025 Thyroid nodule (ICD-10 - E04.1) 03/05/2025 Solitary pulmonary nodule (ICD-10 - R91.1) 03/08/2025 Thyroid nodule (ICD-10 - E04.1) 03/05/2025 Abnormal positron emission tomography (PET) scan (ICD-10 - R94.8) 03/05/2025 Thyroid nodule (ICD-10 - E04.1) 03/05/2025 Solitary pulmonary nodule (ICD-10 - R91.1) 12/09/2024 Recurrent headache (ICD-10 - R51.9) 02/25/2025 Cough, unspecified type (ICD-10 - R05.9) - Upper respiratory symptoms with congestion, cough, intermittent laryngitis, headache, and facial pressure.- Recommended use of mucinex for symptomatic relief. Advised caution decongestants and increased blood pressure.- COVID-19 test ordered, negative. Due to immunocompromised contact, will order viral respiratory panel. - Cefdinir sent as contingency, if viral panel negative would start abx. _update, respiratory panel positive for rhinovirus. Discussed results with patient, anticipate improvement over next several days with illness typically lasting 7-10 days. Will not initiate cefdinir. 12/18/2024 Acute non-recurrent sinusitis, unspecified location (ICD-10 - J01.90) 12/18/2024 Acute migraine (ICD-10 - G43.909) 01/04/2025 Headache, unspecified (ICD-10 - R51.9) 01/04/2025 Atrial fibrillation with RVR (ICD-10 - I48.91) 01/11/2025 Encounter for immunization (ICD-10 - Z23) 02/22/2025 Paroxysmal atrial fibrillation (ICD-10 - I48.0) 10/09/2024 Vitamin B deficiency, unspecified (ICD-10 - E53.9) 10/09/2024 Gastro-esophagea l reflux disease without esophagitis (ICD-10 - K21.9) 07/22/2024 Generalized abdominal pain (ICD-10 - R10.84) 08/03/2024 Acute bilateral low back pain with left-sided sciatica (ICD-10 - M54.42) 08/13/2024 Gastro-esophagea l reflux disease without esophagitis (ICD-10 - K21.9) - Suspected ongoing gastritis and chronic GERD. Abd exam showed improvement in epigastric region tenderness from previous visit, reflux still elicited with pressure.- Differential diagnosis includes gastritis, reflux esophagitis, H. pylori infection, pancreatitis, intermittent SBO, gastric ulcer, hiatal hernia.- Continue taking pantoprazole for at least another month, will re-evaluate need for taper/cessation. Schedule EGD to evaluate gatritis and would likely test for H. pylori at same time. Colonoscopy recommended due to age, can be done concurrently with EGD.- Sending referral to Dr. Crooks for colonoscopy/EGD. 08/13/2024 Generalized abdominal pain (ICD-10 - R10.84) 03/20/2024 Acute cough (ICD-10 - R05.1) 06/01/2024 Rosacea (ICD-10 - L71.9) 06/18/2024 Annual physical exam (ICD-10 - Z00.00) 07/22/2024 Gastro-esophagea l reflux disease without esophagitis (ICD-10 - K21.9) - Abdominal pain possibly related to gastritis. Differential diagnosis includes gastritis, H. Pylori, constipation, pancreatitis, and intermittent SBO due to adhesions. Not highly suspicious of a gastric ulcer or medication-induced gastritis. Epigatric tender and fluid movement in esophagus with epigastric pressure- Prescribe pantoprazole 40 mg once daily. Monitor symptoms and dietary triggers, especially acidic/spicy foods, would like to know pain association with food as trigger. Consider testing for H. pylori if symptoms persist. May continue famotidine if desired.- Follow-up in 4 weeks to assess response to PPI and adjust dosage if necessary. 08/13/2024 Encounter for screening for malignant neoplasm of colon (ICD-10 - Z12.11) 10/09/2024 Encounter for general adult medical examination without abnormal findings (ICD-10 - Z00.00) 12/09/2024 Vitamin D deficiency (ICD-10 - E55.9) 02/22/2025 Chest pain, unspecified (ICD-10 - R07.9) 01/04/2025 Jaw pain (ICD-10 - R68.84) 12/18/2024 Strain of neck muscle, initial encounter (ICD-10 - S16.1XXA) 12/09/2024 Other A/P Recurrent headaches: - Headaches are likely in the migraine family, with vascular etiology considered. Differential includes tension-type headache, but clinical features suggest deeper, vascular origin. No aura or visual changes associated with current headaches. Etiology remains unclear; possible hormonal, vascular, or other systemic triggers discussed. - Continue naproxen. Prescribed rizatriptan for acute management. Continue Nurtec every other day as preventative therapy. Consider steroids (prednisone) if headaches remain uncontrolled. Monitor response to current regimen. - Risks and side effects: Discussed possible side effects of steroids, including flushing, feeling warm, insomnia. - Contingency plan: If headaches remain uncontrolled with current regimen (naproxen, Nurtec, rizatriptan), will consider a short course of steroids (prednisone) to target inflammation. Steroids remain an option if other treatments are not effective. Diagnostic evaluation for headaches: - Ordered blood tests including chemistries, thyroid function, vitamin D, hormones, inflammatory markers. Ordered MRI brain scan to further evaluate etiology of headaches. 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 - Prednisone recommended to reduce sinus inflammation and mucosal thickening seen on MRI - Consider starting antibiotic therapy for possible deep sinus infection due to prolonged symptoms and MRI findings - Take a second dose of rizatriptan after 2 hours if headache persists; monitor response as a diagnostic litmus test for migraine = report hours later demonstrates nearly complete headache resolution but sinus pressure still present. - May continue naproxen with prednisone if needed for pain control; pantoprazole provides gastric protection - Daily preventative migraine medication may be considered if migraine is confirmed by response to rizatriptan - Follow up with provider by early afternoon to reassess response to treatment and determine next steps Eye symptoms - Blurry vision noted, concern for possible acute glaucoma or other ocular pathology - No acute findings on in-office assessment, but definitive evaluation pending - Attempted to arrange urgent eye exam for intraocular pressure check; unable to secure same-day appointment - Advised to pursue eye exam as soon as possible for further evaluation _update this weekend if any worsening or changes. Plan Of Treatment Pending Test Test Name Order Date PFT with DLCO 03/05/2025 CT Scan : Chest without contrast 025 T3 Free 03/05/2025 T4 Free 03/05/2025 CBC w Auto Diff 06/18/2024 Thyroid Stimulating Hormone 03/05/2025 IR FNA 03/08/2025 PET EYE TO THIGH 03/01/2025 US THYROID 03/05/2025 Insurance Providers Payer Name Payer Address Payer Phone Subscriber Number Group Number Insured Name Patient Relationship to Insured Coverage Start Date Coverage End Date [employer] [address] [place] [address] [id number] Ila Brush Self - patient is the insured 5 Medications Administered Medication Instructions Date of Administration Dosage Notes dexAMETHasone 08/03/2024 6 mg Medical (General) History Medical History History ICD Code Vitamin B deficiency, unspecified E53.9 Obesity, unspecified E66.9 Paroxysmal atrial fibrillation I48.0 Gastro-esophageal reflux disease without esophagitis K21.9 Unspecified acute appendicitis K35.80 Generalized abdominal pain R10.84 Surgical History Surgery Date(Month/Year) appendectomy ,notes : 01/23/[address] Cobb ([id number]) ABLATE ATRIA W/O BYPASS EXT ,not es : a-fib ablation 10/02/2019 Loop Recorder 10/31/21 Dr. Yeboah - explant and im plant of new loop recorder & afib ablation. 02/17/25
--- OUTSIDE RECORDS SUMMARY | 2025-03-16 12:37 | XMS_ITS | Clinical Summary ---
Author Organization [facility] Address Critical access hospital[address] [place] [address] Care Team Providers Care Clerical And Administrative Workers Name Role Phone Lawrence Grant MD Primary Care Provider [phone] Petra Pineda MD, Robert Unavailable [phone] Juani Arciniega MD Unavailable [phone] Jamie Desir NP Unavailable [phone] Allergies Active Allergy Reactions Criticality Noted Date Comments Codeine Hyperactive 09/29/2015 Fentanyl Dizziness 12/11/2019 Hydrocodone-Acetaminoph en GI Upset 09/29/2015 Metoprolol Other (see comment) 12/31/2016 Profound fatigue Morphine Hyperactive 09/29/2015 Penicillins Itching 09/09/2024 Tape Rash Low 09/22/2024 Medications Multiple Vitamins-Minerals (MULTIVITAMIN ADULT OR) Take 1 tablet by mouth daily. Active cetirizine 10 MG tablet Take 1 tablet (10 mg total) by mouth daily. Active pantoprazole EC (PROTONIX) 40 MG tablet Take 1 tablet (40 mg total) by mouth daily. 08/20/19 25 Active Cholecalciferol (VITAMIN D) 50 MCG (1999 UT) Cap daily. Active amitriptyline (ELAVIL) 25 MG tablet Take 1 tablet (25 mg total) by mouth daily. 12/26/19 25 Active NURTEC 75 MG disintegrating tablet Take 1 tablet (75 mg total) by mouth every other day. 12/26/19 25 Active naproxen (NAPROSYN) 250 MG tablet Take 2 tablets (500 mg total) by mouth 2 (two) times daily as needed (As needed for headache). Active dilTIAZem CD (CARDIZEM CD) 120 MG 24 hr capsule Take 1 capsule (120 mg total) by mouth daily. HOLD for systolic blood pressure/to p number if less than 110 mmHg and/or heart rate less than 60 bpm. 02/19/20 Active XARELTO 20 MG Tab tabletIndications: A-fib (CMS/HCC HHS/HCC) TAKE 1 TABLET (20 MG TOTAL) BY MOUTH DAILY WITH SUPPER. TAKE WITH FOOD 30 tablet 2 02/27/20 Active rivaroxaban (XARELTO) 20 MG Tab tablet Take 1 tablet (20 mg total) by mouth daily with supper. Take with food 30 tablet 2 12/05/19 25 025 Discontinued dilTIAZem CD (CARDIZEM CD) 120 MG 24 hr capsule Take 1 capsule (120 mg total) by mouth daily. 01/16/20 25 025 Discontinued dilTIAZem CD (CARDIZEM CD) 120 MG 24 hr capsule Take 1 capsule (120 mg total) by mouth daily. HOLD for systolic blood pressure/to p number if less than 110 mmHg. 02/19/20 025 Discontinued Active Problems Problem Noted Date Diagnosed Date Persistent atrial fibrillation 02/17/2025 Gastroesophageal reflux disease without esophagi tis 08/18/2024 Generalized abdominal pain 08/18/2024 Implantable loop recorder present 04/22/2023 Syncope and collapse 04/20/2019 Light headedness 04/30/2017 intermediate current use of antiarrhythmic drug 12/2016 Palpitation 12/31/2016 Paroxysmal atrial fibrillation 10/03/2015 Resolved Problems Problem Noted Date Diagnosed Date Resolved Date Colon cancer screening 08/18/202408/24 Colon cancer screening 08/18/202409/14 Colon cancer screening 08/18/202409/21 Colon cancer screening 08/18/202409/28 Encounters Date Type Department Care Team Description 03/09/2025 1:30 PM ADMINISTRATIVE ANALYST Office Visit [facility] [address] [place] [address] Jamie Desir, PUBLICITY WRITER Follow Up (Status post AF ablation and BSc ILR) 03/09/2025 1:30 PM ADMINISTRATIVE ANALYST Allied Health/Nurse Visit [facility] [address] [place] [address] Jamie Desir, PUBLICITY WRITER In Clinic Device Check 03/09/2025 Travel 03/08/2025 8:50 AM ADMINISTRATIVE ANALYST - 03/08/2025 11:59 PM ADMINISTRATIVE ANALYST Hospital Encounter [facility] Cardiopulmonary Services [address] [place] [address] Lawrence Grant MD Discharge Disposition: Home or Self Care (Routine Discharge) 03/08/2025 Travel 03/05/2025 12:35 PM ADMINISTRATIVE ANALYST - 03/05/2025 11:59 PM ADMINISTRATIVE ANALYST Hospital Encounter [facility] Ultrasound [address] [place] [address] Lawrence Grant MD Discharge Disposition: Home or Self Care (Routine Discharge) 03/05/2025 Transcribe Orders [facility] Pre Access Team [address] [place] [address] Lawrence Grant MD 03/05/2025 Orders Only [facility] [address] [place] [address] Juani Arciniega MD 03/05/2025 Travel 03/05/2025 Telephone [facility] [address] [place] [address] Juani Arciniega MD Question 03/04/2025 8:44 AM ADMINISTRATIVE ANALYST - 03/04/2025 11:59 PM ADMINISTRATIVE ANALYST Hospital Encounter [facility] PET [address] [place] [address] Lawrence Grant MD Discharge Disposition: Home or Self Care (Routine Discharge) 03/04/2025 Travel 02/22/2025 Hospital Follow-up Call [facility] Cardiovascular Care Unit [address] [place] [address] Jess Post RN 02/17/2025 12:37 PM ADMINISTRATIVE ANALYST Anesthesia Event [facility] Flight Test Supervisor [address] [place] [address] Katarina Cummings MD,PHD Treasure Kim RN 02/17/2025 9:49 AM ADMINISTRATIVE ANALYST - 02/18/2025 11:19 AM ADMINISTRATIVE ANALYST Hospital Encounter [facility] Cardiovascular Care Unit [address] [place] [address] Juani Arciniega MD Stanton, George, MD Discharge Disposition: Home or Self Care (Routine Discharge) 02/17/2025 Travel 02/09/2025 12:17 PM ADMINISTRATIVE ANALYST - 02/09/2025 11:59 PM ADMINISTRATIVE ANALYST Hospital Encounter [facility] CT [address] [place] [address] Juani Arciniega MD Discharge Disposition: Home or Self Care (Routine Discharge) 02/09/2025 11:49 AM ADMINISTRATIVE ANALYST - 02/09/2025 12:16 PM ADMINISTRATIVE ANALYST Hospital Encounter [facility] [address] [place] [address] Juani Arciniega MD Discharge Disposition: Home or Self Care (Routine Discharge) 02/09/2025 10:30 AM ADMINISTRATIVE ANALYST Office Visit [facility] [address] [place] [address] Jamie Desir NP Follow Up (Scheduled for redo AF ablation and BSc ILR explant/implant on 02/17/2025) 02/09/2025 Travel 02/01/2025 Orders Only [facility] [address] [place] [address] Juani Arciniega MD 01/15/2025 Orders Only [facility] [address] [place] [address] Juani Arciniega MD 01/12/[address] [facility] Flight Test Supervisor Electrophysiology [address] [place] [address] Juani Arciniega MD 01/03/2025 6:57 AM CDT - 01/03/2025 2:52 PM CDT Emergency [facility] Emergency Services [address] [place] [address] Piter Aparicio MD Chest Pain Discharge Disposition: Home or Self Care (Routine Discharge) 01/03/2025 Travel 12/21/2024 Telephone [facility] [address] [place] [address] Juani Arciniega MD Appointment Request; Schedule Test 12/16/2024 2:46 PM CDT - 12/16/2024 11:59 PM CDT Hospital Encounter [facility] [place] [address] [place] [address] Lawrence Grant MD Discharge Disposition: Home or Self Care (Routine Discharge) 12/16/2024 Travel from Last 3 Months Immunizations Immunization Administration Dates Next Due MODERNA COVID-19 (12+) MRNA, LNP-S, PF, 100 MCG/ 0.5 ML DOSE 04/07/2020,03/09/2020 Family History Medical History Relation Comments Hypertension Brother 2 Hyperlipidemia Father Diabetes Mother Hypertension Mother Hypertension Sister 2 Coronary artery disease Neg Hx Relation Status Comments Brother 1 Alive Brother 2 Father Alive Maternal Grandfather Maternal Grandmother Mother Alive Paternal Grandfather Paternal Grandmother Sister 1 Alive Sister 2 Social History Tobacco Use Types Packs/Day Years Used Date Smoking Tobacco: Former Cigarettes 0 03/18/1992 - 03/18/2002 Smokeless Tobacco: Never Tobacco Cessation:Counseling Given: Not Answered Alcohol Use Standard Drinks/Week Comments No 0 [...] any time in the past 12 m [facility], were you homeless or living in a correction (including now)? No 02/18/2025 [facility] Utilities Answer Date Recorded In the past [...] file Not on file Not on file Last Filed Vital Signs Vital Sign Reading Time Taken Comments Blood Pressure 106/76 03/09/2025 1:32 PM ADMINISTRATIVE ANALYST Pulse 93 03/09/2025 1:32 PM ADMINISTRATIVE ANALYST Temperature 37.3 C (99.1 F) 02/18/2025 7:23 AM ADMINISTRATIVE ANALYST Respiratory Rate 16 03/09/2025 1:32 PM ADMINISTRATIVE ANALYST Oxygen Saturation 98% 03/09/2025 1:32 PM ADMINISTRATIVE ANALYST Inhaled Oxygen Concentration - - Weight 86.2 kg (190 lb) 03/09/2025 1:32 PM ADMINISTRATIVE ANALYST Height 172.7 cm (5' 8) 03/09/2025 1:32 PM ADMINISTRATIVE ANALYST Body Mass Index 28.89 03/09/2025 1:32 PM ADMINISTRATIVE ANALYST Plan of Treatment Upcoming Encounters Date Type Department Care Team (Late st Contact Info) Description 04/12/2025 1:00 AM ADMINISTRATIVE ANALYST Allied Health/Nurse Visit [address] [address] Juani Arciniega MD [address] [place] [address] 06/08/2025 9:45 AM CDT Allied Health/Nurse Visit [address] [address] Juani Arciniega MD [address] [place] [address] 06/08/2025 9:45 AM CDT Office Visit [address] [address] Juani Arciniega MD [address] [place] [address] Health Maintenance Due Date Last Done Comments Cervical Cancer Screening Pap Smear (Age 30 to 64) Every 3 Years 1975 Annual Physical 08/24/1979 Hepatitis C 1994 Hepatitis B Vaccines (1 of 3 - 19+ 3-dose series) 08/24/1995 Cervical Cancer Screening Pap with HPV Testing (Age 30 to 64) Every 5 Years 05/30/2022 05/30/2017 Cervical Cancer Screening with HPV 05/30/2022 DTaP, Tdap and Td Vaccines (2 - Td or Tdap) 10/13/2022 10/13/2012 PHQ-2 (Physician [place]) 03/18/2024 COVID-19 Vaccine ( season) 2024 04/07/2020, 03/09/2020 Mammogram Screening 07/28/2026 07/28/2024, 06/25/2023, 01/09/2022, Additional history exists Colorectal Cancer Screening Colonoscopy (10 Years) 09/22/2034 09/22/2024, 09/22/2024 Influenza Adult Completed 01/11/2025, 12/16, 01/11/2023, Additional history exists Hepatitis A Vaccines Aged Out No long er eligible based on patient's age to complete this topic Meningococcal B Vaccine Aged Out No l onger eligible based on patient's age to complete this topic Meningococcal Vaccine Aged Out No teofilo hattie eligible based on patient's age to complete this topic Pneumococcal Vaccine: Pediatrics (0 to 5 Years) and At-Risk Patients (6 to 49 Years) Aged Out No longer eligible based on patient's age to complete this topic RSV Immunizations Under 20 Months Aged Out No longer eligible based on patient's age to complete this topic Medical Devices Implanted Type Area Electrical Continuity Inspector Device Identifier Shelf Expiration Date Model / Serial / Lot [employer] Lux-Dx Ii-02/17/2025 Implanted:05/2024 by Juani Arciniega MD (Quantity not on file) Implantable Loop Recorder Gameotic 06/23/2026 [id number] / [id number] / Description:DX: Post AF Abla tion Explanted Type Area Electrical Continuity Inspector Device Identifier Shelf Expiration Date Model / Serial / Lot [place] Lux-Dx Implantable Loop Recorder- 022 Implanted:10/31 by Jewel Hawthorne MD (Quantity not on file) Explanted:02/17 by Juani Arciniega MD (Quantity not on file) Implantable Loop Recorder [employer]otic 08/07/2022 [id number] / [id number] / Procedures Procedure Name Priority Date/Time Associated Diagnosis Comments ELECTROCARDIOGRAM (NON MIDMARK ACQUIRED) Routine 03/09/2025 1:38 PM ADMINISTRATIVE ANALYST Persistent atrial fibrillation ([facility]/HCC [facility]/HCC) Encounter for loop recorder check US THYROID STAT 03/05/2025 1:00 PM ADMINISTRATIVE ANALYST Thyroid nodule PET EYE TO THIGH [id number] STAT 03/04/2025 1:04 PM ADMINISTRATIVE ANALYST Nodule of lower lobe of right lung ECG 12-LEAD Routine 02/18/2025 8:59 AM ADMINISTRATIVE ANALYST MAGNESIUM Routine 02/18/2025 3:50 AM ADMINISTRATIVE ANALYST BASIC METABOLIC PANEL Routine 02/18/2025 3:50 AM ADMINISTRATIVE ANALYST PROTHROMBIN TIME, VENOUS Routine 3:50 AM ADMINISTRATIVE ANALYST HC CBC AUTO W/AUTO DIFF Routine 02/19/20 3:50 AM ADMINISTRATIVE ANALYST ECG 12-LEAD Routine 02/17/2025 4:57 PM ADMINISTRATIVE ANALYST POCT ACTIVATED CLOTTING TIME - ISTAT DOCKED DEVICE Routine 02/17/2025 3:28 PM ADMINISTRATIVE ANALYST POCT ACTIVATED CLOTTING TIME - ISTAT DOCKED DEVICE Routine 02/17/2025 3:10 PM ADMINISTRATIVE ANALYST POCT ACTIVATED CLOTTING TIME - ISTAT DOCKED DEVICE Routine 02/17/2025 2:51 PM ADMINISTRATIVE ANALYST POCT ACTIVATED CLOTTING TIME - ISTAT DOCKED DEVICE Routine 02/17/2025 2:32 PM ADMINISTRATIVE ANALYST POCT ACTIVATED CLOTTING TIME - ISTAT DOCKED DEVICE Routine 02/17/2025 2:13 PM ADMINISTRATIVE ANALYST POCT ACTIVATED CLOTTING TIME - ISTAT DOCKED DEVICE Routine 02/17/2025 1:55 PM ADMINISTRATIVE ANALYST ART LINE PLACEMENT Routine 02/17/2025 12 :59 PM ADMINISTRATIVE ANALYST ECG 12-LEAD Routine 02/17/2025 10:16 AM ADMINISTRATIVE ANALYST ORDER FRESH FROZEN PLASMA Routine 02/17/2025 10:04 AM ADMINISTRATIVE ANALYST POCT URINE (BACK OFFICE) Routine 02/17/2025 [facility] W 3D IMAGING INCIDENTAL FINDINGS Routine 02/09/2025 12:49 PM ADMINISTRATIVE ANALYST Paroxysmal atrial fibrillation (CMS/HCC HHS/HCC) CTA HEART W 3D IMAGING Routine 12:49 PM ADMINISTRATIVE ANALYST Paroxysmal atrial fibrillation (CMS/HCC HHS/HCC) HC BLOOD TYPING ABO Routine 02/09/2025 1 1:59 AM ADMINISTRATIVE ANALYST Paroxysmal atrial fibrillation (CMS/HCC HHS/HCC) Encounter for loop recorder at end of battery life COMPREHENSIVE METABOLIC PANEL Routine 02/09/2025 11:59 AM ADMINISTRATIVE ANALYST Paroxysmal atrial fibrillation (CMS/HCC HHS/HCC) Encounter for loop recorder at end of battery life HC CBC AUTO W/AUTO DIFF Routine 02/10/20 11:59 AM ADMINISTRATIVE ANALYST Paroxysmal atrial fibrillation (CMS/HCC HHS/HCC) Encounter for loop recorder at end of battery life ELECTROCARDIOGRAM (NON MIDMARK ACQUIRED) Routine 02/09/2025 10:54 AM ADMINISTRATIVE ANALYST Paroxysmal atrial fibrillation (CMS/HCC HHS/HCC) On rivaroxaban therapy ECG 12-LEAD Routine 01/03/2025 2:11 PM CDT ECG 12-LEAD Routine 01/03/2025 11:20 AM CDT CRITICAL CARE Routine 01/03/2025 9:21 AM CDT HC TROPONIN QN STAT 01/03/2025 9:16 AM CDT XR CHEST PORTABLE STAT 01/03/2025 7:4 7 AM CDT PRO-BRAIN NATRIURETIC PEPTIDE STAT 01/03/2025 7:18 AM CDT HC TROPONIN QN STAT 01/03/2025 7:18 AM CDT HC COMPREHENSIVE METABOLIC PANEL STAT 01/03/2025 7:18 AM CDT HC CBC AUTO W/AUTO DIFF STAT 01/04/20 7:18 AM CDT ECG 12-LEAD Routine 01/03/2025 7:05 AM CDT MRI BRAIN WO CON Routine 12/16/2024 3:34 PM CDT Recurrent headache MG SCREENING W REYMUNDO SHIRIN DIGI Routine 07/28/2024 7:49 AM CDT Encounter for gynecological examination (general) (routine) without abnormal findings HPV MRNA E6/E7 Routine 05/30/2017 8:08 AM CDT from Last 3 Months or Most Recently Relevant to Health Maintenance Results * ELECTROCARDIOGRAM (NON MIDMARK ACQUIRED) (03/09/2025 1:38 PM ADMINISTRATIVE ANALYST) Only the most recent of2 resultswithin the time period is included. ECG QT 362 [facility] QTC [facility] 03/09/2025 1:38 PM ADMINISTRATIVE ANALYST Narrative [facility] - 03/11/2025 10:36 AM [facility] [address] [place] [address] Test Date: 2025-03-09 Pat Name: ILA BRUSH Department: [facility] Room: Gender: Female Director Trading: : 1975 Requested By: JUANI ARCINIEGA Order Number: [id number] Mars MD: Mahogany Lloyd Measurements Intervals Gary Rate: 93 P: 58 GA: 160 QRS: 30 QRSD: 104 T: 11 QT: 362 QTc: 451 Interpretive Statements SINUS RHYTHM NISTRATIVE ANALYST Procedure Note Mahogany Lloyd MD - 03/11/2025 [facility], [facility] [place] [address] Test Date: 2025-03-09 Pat Name: ILA BRUSH Department: [place] Room: Gender: Female Director Trading: : 1975 Requested By: JUANI ARCINIEGA Order Number: [id number] Reading MD: Mahogany Lloyd Measurements Intervals Gary Rate: 93 P: 58 GA: 160 QRS: 30 QRSD: 104 T: 11 QT: 362 QTc: 451 Interpretive Statements SINUS RHYTHM NISTRATIVE ANALYST us Juani Arciniega MD PROCEDURES-ORDERABLE NO HERIBERTO RGE Final Result [facility] * US THYROID (03/05/2025 1:00 PM ADMINISTRATIVE ANALYST) Anatomical Region Laterality Modality Neck Computed Tomogra phy 03/05/2025 3:06 PM ADMINISTRATIVE ANALYST Impressions 03/05/2025 3:10 PM ADMINISTRATIVE ANALYST IMPRESSION: 1.Irregular probably hypoechoic nodule within the mid right thyroid. Biopsy could be considered as detailed above Ordered By: LAWRENCE GRANT Interpreted By: Marco Morgan MD, 03/05/2025 3:06 PM Narrative 03/05/2025 3:10 PM ADMINISTRATIVE ANALYST [address] [place] [address] ULTRASOUND OF THE THYROID CLINICAL HISTORY: Thyroid [...] observed. The surrounding soft tissues appear normal Procedure Note Marco Morgan MD - 03/05/[address] [place] [id number] ULTRASOUND OF THE THYROID CLINICAL HISTORY: Thyroid nodule High-resolution grayscale and color Doppler ultrasound was performed overthe thyroid. COMPARISON: None FINDINGS: Right lobe: 5.3 x 2.2 x 1.4 cm in greatest dimensions Left lobe: 4.7 x 1.8 x 1.1 cm Isthmus: 3.9 mm in thickness The overall size of the gland is within normal limits. On the right thereis an irregular hypoechoic nodule that measures 1.1 x 1.3 x 1.0 cm ingreatest dimensions. The overall appearance is nonspecific. Reportedly,this nodule is FDG avid and therefore biopsy could be considered but maybe difficult or nondiagnostic due to the small size. No additional nodulesare observed. The surrounding soft tissues appear normal IMPRESSION: 1.Irregular probably hypoechoic nodule within the mid right thyroid.Biopsy could be considered as detailed above Ordered By: LAWRENCE GRANT Interpreted By: Marco Morgan MD, 03/05/2025 3:06 PM us Lawrence Grant MD ULTRASOUND Final Result * PET EYE TO THIGH [id number] (03/04/2025 1:04 PM ADMINISTRATIVE ANALYST) Anatomical Region Laterality Modality Body Positron Emissio n Tomography (PET) 03/04/2025 4:00 PM ADMINISTRATIVE ANALYST Impressions 03/04/2025 4:11 PM ADMINISTRATIVE ANALYST IMPRESSION: 1. The enlarging right lower lobe nodule has mild FDG uptake above lung background concerning for a potential primary bronchogenic malignancy. Recommend tissue sampling. 2. No FDG evidence of regional nuris or distant metastatic disease. 3. Moderate focal FDG uptake associated with a right thyroid lobe nodule. This increases the risk that this nodule may be malignant. Recommend further evaluation with thyroid ultrasound and FNA. Ordered By: LAWRENCE GRANT Interpreted By: Lizzeth Muñoz MD, 03/04/2025 4:00 PM Narrative 03/04/2025 4:11 PM ADMINISTRATIVE ANALYST [facility] [address] [place] [address] EXAMINATION: TUMOR FDG-PET/CT IMAGING DATE OF STUDY: 03/04/2025 SCANNER: [facility] RADIOPHARMACEUTICAL: 11.3 mCi F-18 Fluorodeoxyglucose (FDG) i.v. Injection site: Right antecubital fossa HISTORY: Enlarging right lower lobe nodule. The study is requested for diagnosis. Initial treatment strategy. TECHNIQUE: The patient's fasting blood glucose level, measured by glucometer before injection of FDG, was 116 mg/dL. MD-Gastroview was not given orally. After intravenous administration of FDG, noncontrast CT images were obtained for attenuation correction and for fusion with emission PET images to allow for anatomical localization of PET findings. Emission PET images were then obtained. The study was interpreted on the [employer] workstation. The mean liver SUV (reported for housing quality standard inspector purposes) is 2.4. The total scanned area was skull base to the proximal thighs. Images of the body were obtained starting 50 minutes after injection of tracer. COMPARISON: [facility] heart 02/09/2025 FINDINGS: The slowly enlarging 1 cm right lower lobe nodule has mild FDG uptake above lung background with max SUV 1.4 which is slightly misregistered from respiratory motion. Adjacent lung background max SUV is approximately 0.8. No hypermetabolic hilar or mediastinal lymphadenopathy. There is an approximately 8 mm right thyroid lobe nodular focus of moderate FDG uptake with max SUV 4.9 which has a subtle hypodense correlate on CT. Symmetric tonsillar FDG uptake is likely infectious/inflammatory. Additional CT findings: Dependent atelectasis. Left chest loop recorder. Cholecystectomy clips. Colonic diverticulosis. Pelvic phleboliths. An IUD is in place within the endometrial canal. Tiny sclerotic foci in the left femoral head and lumbar spine likely represent bone islands. Mild multilevel spondylosis. Procedure Note Lizzeth Muñoz MD - 03/04/2025 [facility] [address] [place] [address] EXAMINATION: TUMOR FDG-PET/CT IMAGING DATE OF STUDY: 03/04/2025 SCANNER: [facility] RADIOPHARMACEUTICAL: 11.3 mCi F-18 Fluorodeoxyglucose (FDG) i.v.Injection site: Right antecubital fossa HISTORY: Enlarging right lower lobe nodule. The study is requested fordiagnosis. Initial treatment strategy. TECHNIQUE: The patient's fasting blood glucose level, measured byglucometer before injection of FDG, was 116 mg/dL. ELIZABETHGastromarie was notgiven orally. After intravenous administration of FDG, noncontrast CTimages were obtained for attenuation correction and for fusion withemission PET images to allow for anatomical localization of PET findings.Emission PET images were then obtained. The study was interpreted on [employer] workstation. The mean liver SUV (reported for quality controlpurposes) is 2.4. The total scanned area was skull base to the proximal thighs. Images ofthe body were obtained starting 50 minutes after injection of tracer. COMPARISON: CTA heart 02/09/2025 FINDINGS: The slowly enlarging 1 cm right lower lobe nodule has mild FDG uptakeabove lung background with max SUV 1.4 which is slightly misregisteredfrom respiratory motion. Adjacent lung background max SUV is approximately0.8. No hypermetabolic hilar or mediastinal lymphadenopathy. There is an approximately 8 mm right thyroid lobe nodular focus ofmoderate FDG uptake with max SUV 4.9 which has a subtle hypodensecorrelate on CT. Symmetric tonsillar FDG uptake is likely infectious/inflammatory. Additional CT findings: Dependent atelectasis. Left chest loop recorder.Cholecystectomy clips. Colonic diverticulosis. Pelvic phleboliths. An IUDis in place within the endometrial canal. Tiny sclerotic foci in the leftfemoral head and lumbar spine likely represent bone islands. Mildmultilevel spondylosis. IMPRESSION: 1. The enlarging right lower lobe nodule has mild FDG uptake above lungbackground concerning for a potential primary bronchogenic malignancy.Recommend tissue sampling. 2. No FDG evidence of regional nuris or distant metastatic disease. 3. Moderate focal FDG uptake associated with a right thyroid lobe nodule.This increases the risk that this nodule may be malignant. Recommendfurther evaluation with thyroid ultrasound and FNA. Ordered By: LAWRENCE GRANT Interpreted By: Lizzeth Muñoz MD, 03/04/2025 4:00 PM us Lawrence Grant MD PET Final Result * ECG 12 lead - in AM (02/18/2025 8:59 AM ADMINISTRATIVE ANALYST) Only the most recent of6 resultswithin the time period is included. ECG QT 361 [facility] ECG QTC 435 [facility] 02/18/2025 8:59 AM ADMINISTRATIVE ANALYST Narrative [facility] - 02/18/2025 6:57 PM ADMINISTRATIVE ANALYST [address] [address] Test Date: 2025-02-18 Pat Name: [facility] Department: [facility] Gender: Female Director Trading: : 1975 Requested By: JUANI ARCINIEGA Order Number: [id number] Reading MD: Clarence Ojeda Measurements Intervals Gary Rate: 87 P: 56 GA: 161 QRS: 28 QRSD: 92 T: 19 QT: 361 QTc: 435 Interpretive Statements SINUS RHYTHM NON-SPECIFIC ST-T WAVE ABNORMALITY NISTRATIVE ANALYST Procedure Note Clarence Ojeda MD - 02/18/[address] [address] Test Date: 2025-02-18 Pat Name: [facility] Department: 1 Room: 632AA Gender: Female Director Trading: Ms : 1975 Requested By: JUANI ARCINIEGA Order Number: [id number] Reading MD: Clarence Ojeda Measurements Intervals Gary Rate: 87 P: 56 GA: 161 QRS: 28 QRSD: 92 T: 19 QT: 361 QTc: 435 Interpretive Statements SINUS RHYTHM NON-SPECIFIC ST-T WAVE ABNORMALITY NISTRATIVE ANALYST Juani Arciniega MD ECG ORDERABLES Final Resul t Performing Organization Address City/[facility] de Phone Number [facility] RAD * (ABNORMAL) PROTIME/INR, VENOUS (02/18/2025 3:50 AM ADMINISTRATIVE ANALYST) Pathologist [facility] [place] PROTIME 25.9(H) 9.4 - 12.5 SEC 02/18/2025 4:47 AM ADMINISTRATIVE ANALYST [facility] INR 2.2(H) 0.8 - 1.1 02/18/2025 4:47 AM ADMINISTRATIVE ANALYST [facility] BLOOD VENOUS BLOOD SPECIMEN / Unknown 02/18/2025 3:50 AM ADMINISTRATIVE ANALYST us Juani Arciniega MD LABORATORY Final Resul t Performing Organization Address [facility] de Phone Number [facility] [address] [place] [address], [phone] * MAGNESIUM (02/18/2025 3:50 AM ADMINISTRATIVE ANALYST) Pathologist [facility] [place] MAGNESIUM 2.1 1.6 - 2.6 MG/DL 02/18/2025 4:57 AM ADMINISTRATIVE ANALYST [facility] BLOOD VENOUS BLOOD SPECIMEN / Unknown 02/18/2025 3:50 AM ADMINISTRATIVE ANALYST us Juani Arciniega MD LABORATORY Final Resul t Performing Organization Address [facility] de Phone Number [facility] [address] [place] [address], [phone] * (ABNORMAL) CBC W/DIFF AUTOMATED (02/18/2025 3:50 AM ADMINISTRATIVE ANALYST) Only the most recent of2 resultswithin the time period is included. WBC 9.15 4.00 - 10.80 x10'3/uL 02/18/2025 4:26 AM [facility] RBC 3.90(L) 4.10 - 5.40 x10'6/uL 02/18/2025 4:26 AM [facility] HGB 11.9(L) 12.0 - 16.0 G/DL 02/18/2025 4:26 AM [facility] HCT 34.7(L) 36.0 - 47.0 % 02/18/2025 4:26 AM [facility] MCV 89.0 78.0 - 100.0 FL 02/18/2025 4:26 AM [facility] MCH 30.5 27.0 - 31.0 PG 02/18/2025 4:26 AM [facility] MCHC 34.3 33.0 - 36.0 G/DL 02/18/2025 4:26 AM [facility] RDW 12.9 11.5 - 14.5 % 02/18/2025 4:26 AM [facility] PLT 186 150 - 350 x10'3/uL 02/18/2025 4:26 AM [facility] MPV 11.0(H) 7.4 - 10.4 FL 02/18/2025 4:26 AM [facility] DIFFERENTIAL TYPE AUTOMATED DIFFERENTIAL 02/18/2025 4:26 AM [facility] SEG NEUTROPHILS 78.0 % 4:26 AM [facility] LYMPHOCYTES 12.0 % 02/18/2025 4:26 AM [facility] MONOCYTES 9.3 % 02/18/2025 4:26 AM [facility] EOSINOPHILS 0.1 % 02/18/2025 4:26 AM ADMINISTRATIVE ANALYST [facility] BASOPHILS 0.2 % 02/18/2025 4:26 AM [facility] IMMATURE GRANS % 0.4 % 02/19/20 4:26 AM [facility] ABS. NEUTROPHILS 7.13 1.60 - 8.30 x10'3/uL 02/18/2025 4:26 AM ADMINISTRATIVE ANALYST [facility] ABS. LYMPHOCYTES 1.10 0.80 - 4.70 x10'3/uL 02/18/2025 4:26 AM ADMINISTRATIVE ANALYST [facility] ABS. MONOCYTES 0.85 0.00 - 1.50 x10'3/uL 02/18/2025 4:26 AM ADMINISTRATIVE ANALYST [facility] ABS. EOSINOPHILS 0.01 0.00 - 0.40 x10'3/uL 02/18/2025 4:26 AM ADMINISTRATIVE ANALYST [facility] ABS. BASOPHILS 0.02 0.00 - 0.20 x10'3/uL 02/18/2025 4:26 AM [facility] ABS. IMMATURE GRANULOCYTES 0.04(H) 0.00 - 0.03 x10'3/uL 02/18/2025 4:26 AM [facility] ABS. NUCLEATED RBC'S 0.00 0.00 - 0.01 x10'3/uL 02/18/2025 4:26 AM [facility] NRBC % 0.0 % 02/18/2025 4:26 AM [facility] BLOOD VENOUS BLOOD SPECIMEN / Unknown 02/18/2025 3:50 AM ADMINISTRATIVE ANALYST us Juani Arciniega MD LABORATORY Final Resul t [facility] [address] [place] [address], [id number] * BASIC METABOLIC PANEL (02/18/2025 3:50 AM ADMINISTRATIVE ANALYST) SODIUM S/P/B 139 136 - 145 MMOL/L 02/18/2025 4:57 AM [facility] POTASSIUM S/P/B 3.8 3.5 - 5.1 MMOL/L 02/18/2025 4:57 AM [facility] CHLORIDE S/P/B 108 97 - 115 MMOL/L 02/18/2025 4:57 AM [facility] CO2 25.1 21.0 - 32.0 MMOL/L 02/18/2025 4:57 AM [facility] GLUCOSE 100 74 - 106 MG/DL 02/18/2025 4:57 AM [facility] BUN 13 7 - 18 MG/DL 02/18/2025 4:57 AM [facility] CREATININE S/P/B 0.56 0.55 - 1.02 MG/DL 02/18/2025 4:57 AM [facility] CALCIUM S/P/B 8.6 8.5 - 10.1 MG/DL 02/18/2025 4:57 AM [facility] ANION GAP 5.9 2.0 - 10.0 MMOL/L 02/18/2025 4:57 AM [facility] OSMOLALITY (CALC) 288 MOSM/KG 025 4:57 AM [facility] Comment:REFERENCE RANGE NOT ESTABLISHED GFR ESTIMATE >90 >90 ML/MIN/1. 73 M2 02/18/2025 4:57 AM [facility] GFR NOTES GFR REFERENCE S: 02/18/2025 4:57 AM [facility] Comment: THE ESTIMATED GFR IS CALCULATED USING THE 2020 CKD-EPI EQUATION. THE FOLLOWING CATEGORIES FOR GRADING RENAL FUNCTION ARE RECOMMENDED BY THE INTERNATIONAL SOCIETY OF NEPHROLOGY (KDIGO 2012 CLINICAL PRACTICE GUIDELINE). G1,NORMAL OR HIGH: >89 ml/min/1.73 m2 G2,MILDLY DECREASED: 60-89 ml/min/1.73 m2 G3A,MILDLY TO MODERATELY DECREASED: 45-59 ml/min/1.73 m2 G3B,MODERATELY TO SEVERELY DECREASED: 30-44 ml/min/1.73 m2 G4,SEVERELY DECREASED: 15-29 ml/min/1.73 m2 G5,KIDNEY FAILURE: <15 ml/min/1.73 m2 BLOOD VENOUS BLOOD SPECIMEN / Unknown 02/18/2025 3:50 AM ADMINISTRATIVE ANALYST us Juani Arciniega MD LABORATORY Final Resul t Performing Organization Address [facility] de Phone Number [facility] [address] [place] [address], [place] [phone] * (ABNORMAL) POCT ACTIVATED CLOTTING TIME - ISTAT DOCKED DEVICE (02/17/2025 3:28 PM ADMINISTRATIVE ANALYST) Only the most recent of6 resultswithin the time period is included. ACTIVATED CLOTTING TIME (ACT HMT OR LMT) 394(H) 74 - 137 SEC 02/17/2025 3:59 PM ADMINISTRATIVE ANALYST [facility] 02/17/2025 3:28 PM ADMINISTRATIVE ANALYST us Juani Arciniega MD POCT ORDERABLES - DEVICE Fi nal Result Performing Organization Address [facility] de Phone Number [facility] [address] [place] [address], [place] [phone] * Art Line (02/17/2025 12:59 PM ADMINISTRATIVE ANALYST) Maria Antonia Xie CRNA - 02/17/2025 12:59 PM ADMINISTRATIVE ANALYST Maria Antonia Minor CRNA 02/17/2025 1:00 PM Art Line Date/Time: 02/17/2025 12:59 PM Performed by: Maria Antonia Minor CRNA Authorized by: Fly Shannon MD 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 It was assessed and patent. Ultrasound was used to visualized vascular needle entry into the vessel and The selected vessel appeared anatomically normal and there were no apparent abnormal findings Secure Method: Taped Patient Tolerance: Tolerated well (under general anesthesia) Started by CB SRNA us Fly Shannon MD [place] ANESTHESIA Final Result * ORDER FRESH FROZEN PLASMA, 4 Units (02/17/2025 10:04 AM ADMINISTRATIVE ANALYST) UNITS ORDERED 4 02/17/2025 10:04 AM ADMINISTRATIVE ANALYST [facility] 02/17/2025 10:0 4 AM ADMINISTRATIVE ANALYST Juani Arciniega MD BLOOD BANK PRODUCT ORDERABL ES Final Result Performing Organization Address [facility] Co de Phone Number [facility] [address] [place] [address], [place] [phone] * POCT urine (02/17/2025) URINE HCG TEST NEGATIVE NEGATIVE [facility] Internal Control: VALID VALID [facility] 02/17/2025 Juani Arciniega MD POINT OF CARE TEST ORDERABL ES Final Result Performing Organization Address [facility] Co de Phone Number [facility] [address] [place] [address], [place] [phone] * CTA HEART W 3D IMAGING INCIDENTAL FINDINGS (02/09/2025 12:49 PM ADMINISTRATIVE ANALYST) Anatomical Region Laterality Modality Chest Computed Tomogra phy 02/16/2025 11:3 9 AM ADMINISTRATIVE ANALYST Impressions 02/16/2025 11:44 AM ADMINISTRATIVE ANALYST IMPRESSION: 1. Cardiac findings interpreted by clip loading machine adjuster. 2. Enlarging right lower lobe pulmonary nodule now measuring up to 1 cm. Further evaluation with FDG PET/CT or tissue sampling is recommended. A Significant message has been sent initially to JUANI Astudillo the [employer] system on 02/16/2025 11:43 AM, Message ID [id number]. Receipt of this communication by the appropriate provider/service will be electronically recorded and documented by [employer] Actionable Findings upon receiving acknowledgement. Ordered By: JUANI ARCINIEGA Interpreted By: Lizzeth Muñoz MD, 02/16/2025 11:39 AM Narrative 02/16/2025 11:44 AM ADMINISTRATIVE ANALYST [facility] [address] [place], [place] [address] EXAMINATION: CARDIAC COMPUTED TOMOGRAPHY ANGIOGRAM, CTA PULMONARY VEINS. LUNG OVER READ. DATE: 02/09/2025 HISTORY: 49 years-year old Female for pre-radiofrequency ablation of pulmonary vein ostia assessment. Atrial fibrillation. COMPARISON: CTA heart 10/01/2019, CTA chest 01/20/2015. TECHNIQUE: Computerized tomography coronary angiogram was obtained using no ECG gating after the administration of 80 mL of Isovue-370 intravenous contrast at 5 mL/sec with 50 mL saline push according to CTA pulmonary vein ablation protocol without immediate complication. A dose lowering technique was used for this procedure, which may include, but is not limited to, dose reduction technique, automated exposure control, the use of iterative reconstruction, and ALARA (As Low As Reasonably Achievable) / Image Gently techniques. Procedure Complications/Allergic Reactions: None. Examination Quality: Determined by clip loading machine adjuster. FINDINGS: PULMONARY VEINS AND OTHER CARDIAC FINDINGS: Interpreted by clip loading machine adjuster. EXTRACARDIAC FINDINGS: The known right lower lobe nodule has increased in size from the prior exam now measuring up to 1 cm, previously this measured approximately 7 mm in 2020. The visualized thoracic aorta is normal in caliber. Visualized pulmonary artery appears normal. Left chest loop recorder. Included upper abdomen is unremarkable. No suspicious osteolytic or osteoblastic lesions. Multilevel spondylosis. Procedure Note Lizzeth Muñoz MD - 02/16/2025 [facility] [address] [place], [place] [address] EXAMINATION: CARDIAC COMPUTED TOMOGRAPHY ANGIOGRAM, CTA PULMONARY VEINS.LUNG OVER READ. DATE: 02/09/2025 HISTORY: 49 years-year old Female for pre-radiofrequency ablation ofpulmonary vein ostia assessment. Atrial fibrillation. COMPARISON: CTA heart 10/01/2019, CTA chest 01/20/2015. TECHNIQUE: Computerized tomography coronary angiogram was obtained usingno ECG gating after the administration of 80 mL of Isovue-370 intravenouscontrast at 5 mL/sec with 50 mL saline push according to CTA pulmonaryvein ablation protocol without immediate complication. A dose loweringtechnique was used for this procedure, which may include, but is notlimited to, dose reduction technique, automated exposure control, the useof iterative reconstruction, and ALARA (As Low As Reasonably Achievable) /Image Gently techniques. Procedure Complications/Allergic Reactions: None. Examination Quality: Determined by clip loading machine adjuster. FINDINGS: PULMONARY VEINS AND OTHER CARDIAC FINDINGS: Interpreted by clip loading machine adjuster. EXTRACARDIAC FINDINGS: The known right lower lobe nodule has increased insize from the prior exam now measuring up to 1 cm, previously thismeasured approximately 7 mm in 2020. The visualized thoracic aorta isnormal in caliber. Visualized pulmonary artery appears normal. Left chestloop recorder. Included upper abdomen is unremarkable. No suspiciousosteolytic or osteoblastic lesions. Multilevel spondylosis. IMPRESSION: 1. Cardiac findings interpreted by clip loading machine adjuster. 2. Enlarging right lower lobe pulmonary nodule now measuring up to 1 cm.Further evaluation with FDG PET/CT or tissue sampling is recommended. A Significant message has been sent initially to JUANI [employer] system on 02/16/2025 11:43 AM,Message ID [id number]. Receipt of this communication by the appropriateprovider/service will be electronically recorded and documented by [employer] upon receiving acknowledgement. Ordered By: JUANI ARCINIEGA Interpreted By: Lizzeth Muñoz MD, 02/16/2025 11:39 AM us Juani Arciniega MD CT Final Resul t * CTA HEART W 3D IMAGING (02/09/2025 12:49 PM ADMINISTRATIVE ANALYST) Anatomical Region Laterality Modality Cardiac Computed Tomogra phy 02/10/2025 5:28 PM ADMINISTRATIVE ANALYST Impressions 02/10/2025 5:28 PM ADMINISTRATIVE ANALYST FINDINGS/IMPRESSION: 1. Normal pulmonary venous return with a total of 5 separate pulmonary veins. Three on the right, two on the left. 2. There is no thrombus in the left atrial appendage. 3. Proximal ascending aorta, 3.9cm 4. Extracardiac findings per Radiology Ordered By: JUANI ARCINIEGA Interpreted By: Josephine Santillan, 02/10/2025 5:28 PM Narrative 02/10/2025 5:28 PM ADMINISTRATIVE ANALYST [facility] [address], [place] [address] CTA HEART W 3D IMAGING Examination Quality: Adequate. Procedure Note Josephine Santillan MD - 02/10/2025 [facility] [address] [place], [place] [address] CTA HEART W 3D IMAGING Examination Quality: Adequate. FINDINGS/IMPRESSION: 1. Normal pulmonary venous return with a total of 5 separate pulmonaryveins. Three on the right, two on the left. 2. There is no thrombus in the left atrial appendage. 3. Proximal ascending aorta, 3.9cm 4. Extracardiac findings per Radiology Ordered By: JUANI ARCINIEGA Interpreted By: Josephine Santillan, 02/10/2025 5:28 PM us Juani Arciniega MD CT Final Resul t * (ABNORMAL) COMPREHENSIVE METABOLIC PANEL (02/09/2025 11:59 AM ADMINISTRATIVE ANALYST) SODIUM S/P/B 141 136 - 145 MMOL/L 02/09/2025 12:34 PM ADMINISTRATIVE ANALYST [facility] POTASSIUM S/P/B 4.0 3.5 - 5.1 MMOL/L 02/09/2025 12:34 PM ADMINISTRATIVE ANALYST [facility] CHLORIDE S/P/B 109 97 - 115 MMOL/L 02/09/2025 12:34 PM ADMINISTRATIVE ANALYST [facility] CO2 27.2 21.0 - 32.0 MMOL/L 02/09/2025 12:34 PM ADMINISTRATIVE ANALYST [facility] GLUCOSE 94 74 - 106 MG/DL 02/09/2025 12:34 PM [facility] BUN 13 7 - 18 MG/DL 02/09/2025 12:34 PM [facility] CREATININE S/P/B 0.69 0.55 - 1.02 MG/DL 02/09/2025 12:34 PM [facility] CALCIUM S/P/B 9.2 8.5 - 10.1 MG/DL 02/09/2025 12:34 PM [facility] BILIRUBIN TOTAL S/P/B 0.7 0.2 - 1.0 MG/DL 02/09/2025 12:34 PM [facility] ALKALINE PHOSPHATASE S/P/B 63 39 - 100 U/L 02/09/2025 12:34 PM [facility] AST 12(L) 15 - 37 U/L 02/09/2025 12:34 PM [facility] ALT 23 13 - 56 U/L 02/09/2025 12:34 PM [facility] TOTAL PROTEIN S/P/B 7.3 6.4 - 8.2 G/DL 02/09/2025 12:34 PM [facility] ALBUMIN S/P/B 3.8 3.4 - 5.0 G/DL 02/09/2025 12:34 PM [facility] ANION GAP 4.8 2.0 - 10.0 MMOL/L 02/09/2025 12:34 PM [facility] OSMOLALITY (CALC) 292 MOSM/KG 025 12:34 PM [facility] Comment:REFERENCE RANGE NOT ESTABLISHED GFR ESTIMATE >90 >90 ML/MIN/1. 73 M2 02/09/2025 12:34 PM [facility] GFR NOTES GFR REFERENCE S: 02/09/2025 12:34 PM [facility] Comment: THE ESTIMATED GFR IS CALCULATED USING THE 2020 CKD-EPI EQUATION. THE FOLLOWING CATEGORIES FOR GRADING RENAL FUNCTION ARE RECOMMENDED BY THE INTERNATIONAL SOCIETY OF NEPHROLOGY (KDIGO 2012 CLINICAL PRACTICE GUIDELINE). G1,NORMAL OR HIGH: >89 ml/min/1.73 m2 G2,MILDLY DECREASED: 60-89 ml/min/1.73 m2 G3A,MILDLY TO MODERATELY DECREASED: 45-59 ml/min/1.73 m2 G3B,MODERATELY TO SEVERELY DECREASED: 30-44 ml/min/1.73 m2 G4,SEVERELY DECREASED: 15-29 ml/min/1.73 m2 G5,KIDNEY FAILURE: <15 ml/min/1.73 m2 02/09/2025 11:5 9 AM ADMINISTRATIVE ANALYST us Juani Arciniega MD LABORATORY Final Resul t Performing Organization Address [facility] de Phone Number [facility] [address] [place] [address], [place] [phone] * Type & Screen ([facility] Epic Use Only) (02/09/2025 11:59 AM ADMINISTRATIVE ANALYST) UNITS ORDERED 4 02/17/2025 9:23 PM ADMINISTRATIVE ANALYST [facility] ABO/RH O POSITIVE 02/09/2025 12:54 PM ADMINISTRATIVE ANALYST [facility] ANTIBODY SCREEN NEGATIVE 02/09/2025 12:54 PM ADMINISTRATIVE ANALYST [facility] SAMPLE EXPIRATION 02/20/2025,2 359 02/09/2025 12:14 PM ADMINISTRATIVE ANALYST [facility] 02/09/2025 11:5 9 AM ADMINISTRATIVE ANALYST us Juani Arciniega MD BLOOD BANK TEST ORDERABLES Final Result Performing Organization Address [facility] Co de Phone Number [facility] [address] [place] [address], [place] [phone] * Critical Care (01/03/2025 9:21 AM CDT) Piter Mann MD - 01/03/2025 9:21 AM CDT Piter Aparicio MD 01/03/2025 2:56 PM Critical Care Performed by: Piter Aparicio MD Authorized by: Piter Aparicio MD Critical care provider statement: Critical care time (minutes): 35 Critical care time was exclusive of: Separately billable procedures and treating other patients and teaching time Critical care was necessary to treat or prevent imminent or life-threatening deterioration of the following conditions: Cardiac failure and circulatory failure Critical care was time spent personally by me on the following activities: Development of treatment plan with patient or surrogate, discussions with consultants, evaluation of patient's response to treatment, examination of patient, obtaining history from patient or surrogate, ordering and performing treatments and interventions, ordering and review of laboratory studies, ordering and review of radiographic studies, re-evaluation of patient's condition, review of old charts and pulse oximetry I assumed direction of critical care for this patient from another provider in my specialty: no Piter Aparicio MD PROCEDURE/MINOR SURGICAL ORDERAB LES Final Result * TROPONIN, QUANT (01/03/2025 9:16 AM CDT) Only the most recent of2 resultswithin the time period is included. TROPONIN I HIGH SENSITIVITY 4 0 - 54 ng/L 01/03/2025 9:39 AM CDT [facility] Comment: HIGH DOSES OF BIOTIN, TROPONIN-SPECIFIC AUTOANTIBODIES, AND ANTIBODY THERAPY CONTAINING HAMA MAY INTERFERE WITH THIS TEST RESULT. CORRELATION TO CLINICAL HISTORY AND PRESENTATION RECOMMENDED. 01/03/2025 9:16 AM CDT Piter Aparicio MD LABORATORY Final Result Performing Organization Address City/State/[facility] Co de Phone Number [facility] [address] [place] [address] [place] [address], [place] * XR CHEST PORTABLE (01/03/2025 7:47 AM CDT) Anatomical Region Laterality Modality Chest Computed Tomogra phy 01/03/2025 7:50 AM CDT Impressions 01/03/2025 7:51 AM CDT IMPRESSION: No acute findings. Ordered By: PITER APARICIO Interpreted By: Elias Rivera MD, 01/03/2025 7:50 AM Narrative 01/03/2025 7:51 AM CDT [address] [place] [address] Examination: X-ray chest, 1 view Exam time: 01/03/2025 at 0735 hours Clinical history: Chest pain.Chest pressure/pain x 3-5am this morning. Comparison: 11/07/2019 Technique: Single frontal upright view of the chest obtained. FINDINGS: No parenchymal consolidation. No discrete pneumothorax or large pleural effusion. Cardiomediastinal silhouette unchanged. Loop recorder device. Procedure Note Elias Rivera MD - 01/03/[address] [place] [address] Examination: X-ray chest, 1 view Exam time: 01/03/2025 at 0735 hours Clinical history: Chest pain.Chest pressure/pain x 3-5am this morning. Comparison: 11/07/2019 Technique: Single frontal upright view of the chest obtained. FINDINGS: No parenchymal consolidation. No discrete pneumothorax or large pleuraleffusion. Cardiomediastinal silhouette unchanged. Loop recorder device. IMPRESSION: No acute findings. Ordered By: PITER APARIICO Interpreted By: Elias Rivera MD, 01/03/2025 7:50 AM Piter Aparicio MD GENERAL IMAGING Final Result * PRO-BRAIN NATRIURETIC PEPTIDE (01/03/2025 7:18 AM CDT) PRO-BRAIN NATRIURETIC PEPTIDE 80 0 - 125 PG/ML 01/03/2025 7:52 AM CDT [facility] Comment: CUT POINTS ESTABLISHED BY INTERNATIONAL COLLABORATIVE ON NT PROBNP (ICON) STUDY (2006). AGE INDEPENDENT: <300 PG/ML HAS A 99% NEGATIVE PREDICTIVE VALUE FOR EXCLUDING ACUTE CHF <50 YEARS: >450 PG/ML IS CONSISTENT WITH ACUTE CHF 50-75 YEARS: >900 PG/ML IS CONSISTENT WITH ACUTE CHF >75 YEARS: >1800 PG/ML IS CONSISTENT WITH ACUTE CHF IN PATIENTS WITH RENAL INSUFFICIENCY (GFR <60), >1200 PG/ML YIELDS A DIAGNOSTIC SENSITIVITY AND SPECIFICITY OF 89% AND 72% FOR ACUTE CHF. 01/03/2025 7:18 AM CDT us Piter Aparicio MD LABORATORY Final Result [facility] [address] [place] [address], * (ABNORMAL) COMPREHENSIVE METABOLIC PANEL (01/03/2025 7:18 AM CDT) Pathologist [facility] [place] GLUCOSE 107(H) 70 - 99 MG/DL 01/03/2025 7:52 AM CDT [facility] BUN 13 7 - 18 MG/DL 01/03/2025 7:52 AM CDT [facility] CREATININE S/P/B 0.71 0.50 - 1.20 MG/DL 01/03/2025 7:52 AM CDT [facility] SODIUM S/P/B 139 136 - 145 MMOL/L 01/03/2025 7:52 AM CDT [facility] POTASSIUM S/P/B 3.5 3.5 - 5.1 MMOL/L 01/03/2025 7:52 AM CDT [facility] CHLORIDE S/P/B 104 100 - 108 MMOL/L 01/03/2025 7:52 AM CDT [facility] CO2 26.6 21.0 - 32.0 MMOL/L 01/03/2025 7:52 AM CDT [facility] CALCIUM S/P/B 8.7 8.5 - 10.1 MG/DL 01/03/2025 7:52 AM CDT [facility] BILIRUBIN TOTAL S/P/B 0.7 0.2 - 1.2 MG/DL 01/03/2025 7:52 AM CDT [facility] Comment: THIS ASSAY IS NOT RECOMMENDED FOR PATIENTS UNDERGOING TREATMENT WITH ELTROMBOPAG DUE TO THE POTENTIAL FOR FALSELY ELEVATED RESULTS. TOTAL PROTEIN S/P/B 7.2 6.4 - 8.2 G/DL 01/03/2025 7:52 AM CDT [facility] ALBUMIN S/P/B 3.7 3.4 - 5.0 G/DL 01/03/2025 7:52 AM CDT [facility] AST 15 15 - 37 U/L 01/03/2025 7:52 AM CDT [facility] ALT 30 14 - 55 U/L 01/03/2025 7:52 AM CDT [facility] ALKALINE PHOSPHATASE S/P/B 67 50 - 136 U/L 01/03/2025 7:52 AM CDT [facility] ANION GAP 8.4 5.0 - 15.0 MMOL/L 01/03/2025 7:52 AM CDT [facility] BUN CREATININE RATIO 18.3 6 - 26 01/03/2025 7:52 AM CDT [facility] A/G RATIO 1.1 1.0 - 2.5 RATIO 01/03/2025 7:52 AM CDT [facility] GFR ESTIMATE >90 >90 ML/MIN/1.7 3 M2 01/03/2025 7:52 AM CDT [facility] Comment: NOTE: eGFR is not calculated for patients <18 years of age. This is an estimated GFR calculation using the new CKD EPI creatinine equation without race and so does not require a correction factor for race. This estimated GFR should not be used for calculating drug doses. 01/03/2025 7:18 AM CDT us Piter Aparicio MD LABORATORY Final Result [address] [place] [address], * (ABNORMAL) CBC W/DIFF AUTOMATED (01/03/2025 7:18 AM CDT) WBC 8.19 4.50 - 11.00 x10'3/uL 01/03/2025 7:55 AM CDT [facility] RBC 4.84 4.00 - 5.20 x10'6/uL 01/03/2025 7:55 AM CDT [facility] HGB 14.8 12.0 - 16.0 G/DL 01/03/2025 7:55 AM CDT [facility] HCT 41.8 38.0 - 48.0 % 01/03/2025 7:55 AM CDT [facility] MCV 86.4 80.0 - 100.0 FL 01/03/2025 7:55 AM CDT [facility] MCH 30.6 26.0 - 34.0 PG 01/03/2025 7:55 AM CDT [facility] MCHC 35.4 31.0 - 37.0 G/DL 01/03/2025 7:55 AM CDT [facility] RDW 13.2 11.6 - 14.8 % 01/03/2025 7:55 AM CDT [facility] PLT 212 130 - 400 x10'3/uL 01/03/2025 7:55 AM CDT [facility] MPV 11.2 7.0 - 12.0 FL 01/03/2025 7:55 AM CDT [facility] CBC COMMENT AUTOMATED RBC MORPHOLOGY AND PLATELET EVALUATION NORMAL 01/03/2025 7:55 AM CDT [facility] [facility] NEUTROPHILS % 68.0 40.0 - 74.0 % 01/03/2025 7:55 AM CDT [facility] LYMPHOCYTES % 20.8 14.0 - 46.0 % 01/03/2025 7:55 AM CDT [facility] MONOCYTES % 8.9 4.0 - 13.0 % 01/03/2025 7:55 AM CDT [facility] EOSINOPHILS 1.1 0.0 - 7.0 % 01/03/2025 7:55 AM CDT [facility] BASOPHILS 0.2 0.0 - 3.0 % 01/03/2025 7:55 AM CDT [facility] IMMATURE GRANS % 1.0(H) 0.0 - 0.43 % 01/03/2025 7:55 AM CDT [facility] NRBC % 0.0 % 01/03/2025 7:55 AM CDT [facility] ABS. NEUTROPHILS TOTAL 5.57 1.69 - 7.81 x10'3/uL 01/03/2025 7:55 AM CDT [facility] ABS. LYMPHOCYTES 1.70 0.21 - 5.42 x10'3/uL 01/03/2025 7:55 AM CDT [facility] ABS. MONOCYTES 0.73 0.04 - 1.37 x10'3/uL 01/03/2025 7:55 AM CDT [facility] ABS. EOSINOPHILS 0.09 0.00 - 0.68 x10'3/uL 01/03/2025 7:55 AM CDT [facility] ABS. BASOPHILS 0.02 0.00 - 0.08 x10'3/uL 01/03/2025 7:55 AM CDT [facility] ABS. IMMATURE GRANULOCYTES 0.08(H) 0.00 - 0.06 x10'3/uL 01/03/2025 7:55 AM CDT [facility] ABS. NUCLEATED RBC'S 0.00 0.00 - 0.01 x10'3/uL 01/03/2025 7:55 AM CDT [facility] 01/03/2025 7:18 AM CDT us Piter Aapricio MD LABORATORY Final Result [address] [place] [address], * MRI BRAIN WO CON (12/16/2024 3:34 PM CDT) Anatomical Region Laterality Modality Head Magnetic Resonan ce 12/18/2024 9:32 AM CDT Impressions 12/18/2024 9:35 AM CDT IMPRESSION: 1. No acute intracranial abnormalities identified. No acute infarct, intracranial mass effect, or midline shift. 2. Few scattered punctate supratentorial white matter abnormalities. Findings can be seen in association with migraine headaches, but are in and of themselves nonspecific. Ordered By: LAWRENCE GRANT Interpreted By: Thai Marin MD, 12/18/2024 9:32 AM Narrative 12/18/2024 9:35 AM CDT [facility] [address] [place] [address] DATE: 12/16/2024 3:22 PM INDICATION: Frontal headaches. EXAMINATION: MRI brain without contrast. TECHNIQUE: Multiplanar and multisequence MRI images of the brain were obtained without contrast. COMPARISON: 03/27/2017 FINDINGS: No diffusion restriction or evidence of acute infarct. No intracranial mass effect or midline shift. There are a few punctate foci of FLAIR hyperintensity seen in the hemispheric white matter, nonspecific. Ventricles and extra-axial/subarachnoid spaces are unremarkable. No extra-axial collections. Proximal portions of the major intracranial arterial flow voids are patent. No hemorrhagic foci of susceptibility seen. Craniocervical junction, sellar content, and pineal region are unremarkable. Mastoid air cells are clear. Mucosal thickening/retention cysts in the paranasal sinuses. Visualized orbits unremarkable. Procedure Note Thai Marin MD - 12/18/2024 [facility] [address] [place] [id number] DATE: 12/16/2024 3:22 PM INDICATION: Frontal headaches. EXAMINATION: MRI brain without contrast. TECHNIQUE: Multiplanar and multisequence MRI images of the brain wereobtained without contrast. COMPARISON: 03/27/2017 FINDINGS: No diffusion restriction or evidence of acute infarct. No intracranialmass effect or midline shift. There are a few punctate foci of FLAIRhyperintensity seen in the hemispheric white matter, nonspecific.Ventricles and extra-axial/subarachnoid spaces are unremarkable. Noextra-axial collections. Proximal portions of the major intracranialarterial flow voids are patent. No hemorrhagic foci of susceptibilityseen. Craniocervical junction, sellar content, and pineal region areunremarkable. Mastoid air cells are clear. Mucosal thickening/retentioncysts in the paranasal sinuses. Visualized orbits unremarkable. IMPRESSION: 1. No acute intracranial abnormalities identified. No acute infarct,intracranial mass effect, or midline shift. 2. Few scattered punctate supratentorial white matter abnormalities.Findings can be seen in association with migraine headaches, but are inand of themselves nonspecific. Ordered By: LAWRENCE GRANT Interpreted By: Thai Marin MD, 12/18/2024 9:32 AM us [place] Grant MD MRI Final Result * MG SCREENING W REYMUNDO SHIRIN DIGI (07/28/2024 7:49 AM CDT) Anatomical Region Laterality Modality Breast Bilateral Mammography 07/28/2024 4:56 PM CDT Impressions 07/28/2024 4:58 PM CDT IMPRESSION: No suspicious change since the previous exams. Recommendation: 1: Routine Screening Bilateral in 1 Year Assessment: ACR BI-RADS 2 - BENIGN FINDING(S) Ordered By: NING ALDRICH Interpreted By: Sudarshan Washington MD, 07/28/2024 4:56 PM Narrative 07/28/2024 4:58 PM CDT [place] [id number] Examination: Digital screening mammogram with CAD. Clinical history: Asymptomatic patient presents for routine screening. History of left breast cyst. Comparison: 06/25/2023, 01/09/2022, 11/02/2020, 08/19/2019, 05/29/2017. Technique: Bilateral digital mammograms. The exam was interpreted with the use of a computer-aided detection (CAD) system. Additional 3-D tomosynthesis images were acquired. Tissue density: The breasts are heterogeneously dense which may obscure small masses. Findings: The breast tissue is heterogeneously dense. The dense tissue may obscure some lesions mammographically. Benign-appearing calcification noted. Sharply circumscribed mass at the 12:00 position near the nipple axis on the left demonstrates minor waxing and waning over time compatible with the documented cyst. Implanted loop recorder on the left has been present since 2021 No suspicious mass, microcalcification or area of architectural distortion can be identified. From a mammographic standpoint, routine followup in one year would seem adequate. Ning Alrdich MD MAMMO Final Resul t * HPV MRNA E6/E7 (05/30/2017 8:08 AM CDT) HPV MRNA E6/E7 Not Detected NOT DETECTED 06/03/2017 4:15 PM CDT [facility] Comment: This test was performed using the APTIMA(R) HPV Assay([employer]This assay detects E6/E7 viral messenger RNA (mRNA)from 14 high-risk HPV types (16,18,31,33,35,39,45,51,52,56,58,59,66,68).For additional information please refer to:http://education.[employer]/faq/JAZ658u4(This link is being provided for informational/educational purposes only.)Test Performed by Zan [facility],[address] [place] [id number] Cm M.D., Ph.D., Director of [phone], [facility] [id number] FLUID SPECIMEN / Unknown 05/30/2017 8:08 AM CDT 05/30/2017 8:08 AM CDT Generic Wendi Delvalle MD PATHOLOGY/CYTOLOGY VIRIDIANA SANCHEZ Final Result [facility] [address] [place] [address] , from Last 3 Months or Most Recently Relevant to Health Maintenance Insurance [employer] Advance Directives * Full Code (Latest Code Status on File) Date Activated Date Inactivated Comments 02/17/2025 4:51 PM 02/18/2025 1:19 PM * Full Code Date Activated Date Inactivated Comments 10/02/2019 1:44 PM 10/03/2019 12:13 PM Care Teams Clerical And Administrative Workers Relationship Specialty Start Date End Date [place] Grant MD [address] [place] [address] PCP - General PEDIATRICS 09/26/15 Dell Lambert MD [address] [place] [address] [place] Sewing Machine Assembler CARDIOVASCULAR DISEASE 04/30/17 Juani Arciniega MD [address] [place] [address] [address] Consulting Physician CLINICAL CARDIAC ELECTROPHYSIOLOGY 08/27/24 Jamie Desir NP [address] [place] [address] [place] [address] Nurse Practitioner NURSE PRACTITIONER 08/27/24
--- OUTSIDE RECORDS SUMMARY | 2025-03-16 12:37 | XMS_ITS | Encounter Summary ---
Author Organization [facility] Address [facility] [place] [address] Care Team Providers Care Mammographer Name Role Phone Armando Stephens MD Primary Care Provider [phone] Chase Walsh MD Unavailable [phone] Petra Pineda MD, Dell Unavailable [phone] Jewel Hawthorne MD Unavailable [phone] Salvatore Yeboah MD Unavailable [phone] Jamie Desir NP Unavailable [phone] Encounter Details Date Type Department Care Team (Late st Contact Info) Description 10/30/2021 Hospital Orders Only [facility] Lab Pre/Post [address] [place] [address] Jewel Hawthorne MD [address], [place] [id number] Social History Tobacco Use Types Packs/Day Years [...] file Not on file Not on file COVID-19 Exposure Response Date Recorded In the last 10 days, have yo u been in contact with someone who was confirmed or suspected to have Coronavirus/COVID-19? No / Unsure 10/31/2021 7:39 AM CDT documented as of this encounter Functional Status * RETIRED Are you deaf or do you have serious difficulty hearing Answer Date of Assessment Author Status No 10/02/2019 1:00 PM CDT Activ e * RETIRED Are you blind or do you have serious difficulty seeing, even when wearing glasses? Answer Date of Assessment Author Status No 10/02/2019 1:00 PM CDT Activ e * Do you have serious difficulty walking or climbing stairs? Answer Date of Assessment Author Status No 10/02/2019 1:00 PM CDT Kacie Reddy, RN Active * Do you have difficulty dressing or bathing? Answer Date of Assessment Author Status No 10/02/2019 1:00 PM CDT Kacie Reddy, RN Active * Because of a physical, mental, or emotional condition, do you have difficulty doing errands alone such as visiting a doctor's office or shopping? Answer Date of Assessment Author Status No 10/02/2019 1:00 PM CDT Kacie Reddy, RN Active documented as of this encounter Mental Status * Because of a physical, mental, or emotional condition, do you have serious difficulty concentrating, remembering, or making decisions? Answer Entry Date Author Status No 10/02/2019 1:00 PM CDT Kacie Reddy, RN Active documented in this encounter Plan of Treatment Upcoming Encounters Date Type Department Care Team (Late st Contact Info) Description 04/12/2025 1:00 AM ASSET MANAGER Allied Health/Nurse Visit [address] [phone] Salvatore Yeboah MD [address] [place] [address] 06/08/2025 9:45 AM CDT Allied Health/Nurse Visit [address] [address] Salvatore Yeboah MD [address] [address] 06/08/2025 9:45 AM CDT Office Visit [facility] [address] [place] [phone] Salvatore Yeboah MD [address] [place] [phone] documented as of this encounter Visit Diagnoses Not on filedocumented in this encounter Care Teams Mammographer Relationship Specialty Start Date End Date Armando Stephens MD [address] [place] [address] PCP - General PEDIATRICS 09/26/15 Chase Walsh MD [address] [place] [phone] [place] Moving Machine Operator CARDIOVASCULAR DISEASE 01/28/17 08/26/24 Dell Lambert MD [address] [place], [place] [phone] [place] Moving Machine Operator CARDIOVASCULAR DISEASE 04/30/17 Jewel Hawthorne MD [address] [place], [place] [phone] [place] Moving Machine Operator CARDIOVASCULAR DISEASE 07/24/21 11/27/22 Salvatore Yeboah MD [address] [place] [address] Consulting Physician CLINICAL CARDIAC ELECTROPHYSIOLOGY 08/27/24 Jamie Desir NP [address] [place] [address] Nurse Practitioner NURSE PRACTITIONER 08/27/24 documented as of this encounter
--- OUTSIDE RECORDS SUMMARY | 2025-03-16 12:37 | XMS_ITS | Encounter Summary ---
Author Organization [facility] Address [facility] [place] [address] Care Team Providers Care Vibratory Pile Driver Name Role Phone Armando Stephens MD Primary Care Provider [phone] Chase Walsh MD Unavailable [phone] Petra Pineda MD, Dell Unavailable [phone] Jewel Hawthorne MD Unavailable [phone] Salvatore Yeboah MD Unavailable [phone] Jamie Desir NP Unavailable [phone] Encounter Details Date Type Department Care Team (Late st Contact Info) Description 09/30/[address] [facility] Anesthesia [address] [place] [address] Sadia Bryant Anesthesia Record Procedure Summary Procedure Name Responsible Anesthesiologist Anesthesia Start Time Anesthesia Stop Time XA A-FIB ABLATION Salvatore Moore MD 10/02/19 0702 10/02/19 1025 Events Date Time Event Comment 10/02/2019 0655 0655 AN Anesthesia Prepped 0702 An Start Patient ID and consent checked and patient reassessed. 0702 An Start Data 0708 Preoxygenation 0710 An Induction 0711 An Intubation 0725 Anesthesia Ready 0810 Quick Note incision [address] Hawthorne [facility] study 0848 Quick Note Blood drawn for ACT 0925 Quick Note Blood drawn for ACT 0943 Quick Note Electrical card ioversion 200J 1011 An Extubation 1018 an stop data 1025 Post Anesthetic Care Handoff I completed my handoff to the receiving nurse during which we: 1. Identified the patient 2. Identified the responsible provider 3. Reviewed the pertinent medical history 4. Discussed the surgical course 5. Reviewed intra-op anesthesia management and issues during anesthesia 6. Set expectations for post-procedure period 7. Allowed opportunity for questions and acknowledgement of understanding. 1025 An Stop Meds * Agents No agents on file. * Blood No blood administrations on file. Lines, Drains, and Airways Type Details Placement Removal [place] Catheter 10/02/19; (laboratory chemist) ; No; I & O - Strict I&O or Critically ill requiring I&O Q1-2hrs; Stat lock; Per Order 10/02/19 0000 by Shad Mata RN 10/02/19 1629 by Kacie Reddy RN Peripheral IV Placement Date: 09/15 10/04; Placement Time: 621; Placed Outside of This Facility?: No; Size: 20 G; Orientation: Left; Location: Hand; Site Prep: Chlorhexidine; Local Anesthetic: None; Insertion attempts: 1; Ultrasound-guided Placement?: No; Patient Tolerance: Tolerated well; Removal Date: 10/03/19; Removal Time: 0910/02/19 0622 by Lori Santiago RN 10/03/19 0935 by Ashley Meyer RN ETT Placement Date: 09/15 10/04; Placement Time: 710; Placed Outside of This Facility?:No; Mask Ventilate: Easy, Prior to intubation; Size (mm) : 7; Endotracheal: Oral; Blade Type: MAC 3; Placement Method: Direct Laryngoscopy (blade type in comment); View Grade: 1; Viewable Anatomy: Epiglottis, Arytenoid, Vocal cords; Insertion Attempts: 1; Placement Verified By: Capnography, Auscultation, Chest Rise; Placed By: FELICIANO; Removal Date: 10/02/19; Removal Time: 1011 10/02/19 0711 by Jessica Cazares CRNA 10/02/19 1011 by Jessica Cazares CRNA Arterial Line Placement Date: 09/15 10/04; Placement Time: 716; Placed Outside of This Facility?: No; Size: 20; Orientation: Right; Location: Radial; Site Prep: Chlorhexidine; Local Anesthetic: None; Inserted By: Jessica Cazares CRNA; Insertion Attempts: 2; Ultrasound-guided Placement?: No; Patient Tolerance: Tolerated well; Removal Date: 10/02/19; Removal Time: 120; Removal Reason: Therapy Completed 10/02/19716 by Jessica Cazares NOZZLEMAN 10/02/19 120 by Shad Mata RN Peripheral IV Placement Date: 09/15 10/04; Placement Time: 723; Placed Outside of This Facility?: No; Size: 18 G; Orientation: Right; Location: Hand; Site Prep: Chlorhexidine; Local Anesthetic: None; Inserted By: Dr. Moore; Insertion attempts: 1; Ultrasound-guided Placement?: No; Patient Tolerance: Tolerated well; Removal Date: 10/02/19; Removal Time: 181; Removal Reason: Infiltrated 10/02/19723 by Jessica Cazares CRNA 10/02/191814 by Kacie Reddy RN documented in this encounter Social History Tobacco Use Types Packs/Day Years Used Date Smoking Tobacco: Former Cigarettes Q uit: 03/2002 Smokeless Tobacco: Never Alcohol Use Standard Drinks/Week [...] Exposure Response Date Recorded In the last month, have you been in contact with someone who was confirmed or suspected to have Coronavirus / COVID-19? No / Unsure 10/02/2019 5:42 AM CDT documented as of this encounter Plan of Treatment Upcoming Encounters Date Type Department Care Team (Late st Contact Info) Description 04/12/2025 1:00 AM LEATHERSMITH Allied Health/Nurse Visit [facility] [address] [place] [address] Salvatore Yeboah MD [address] [place] [address] 06/08/2025 9:45 AM CDT Allied Health/Nurse Visit [address] [phone] Salvatore Yeboah MD [address] [place] [address] 06/08/2025 9:45 AM CDT Office Visit [address] [phone] Salvatore Yeboha MD [address] [place] [address] documented as of this encounter Visit Diagnoses Not on filedocumented in this encounter Additional Health Concerns Infection Onset Date Last Indicated Resolved Time COVID-19 Rule Out 09/23/2019 09/29/2019 09/30/2019 6:28 PM CDT documented as of this encounter Care Teams Vibratory Pile Driver Relationship Specialty Start Date End Date Armando Stephens MD [address] [place] [address] PCP - General PEDIATRICS 09/26/15 Chase Walsh MD [address] [place] [address] [place] Vegetable Sorter CARDIOVASCULAR DISEASE 01/28/17 08/26/24 Dell Lambert MD [address] [place], [place] [phone] [place] Vegetable Sorter CARDIOVASCULAR DISEASE 04/30/17 Jewel Hawthorne MD [address] [place], [place] [phone] EP Vegetable Sorter CARDIOVASCULAR DISEASE 07/24/21 11/27/22 Salvatore Yeboah MD [address] [place] [address] [address] [place] [address] Consulting Physician CLINICAL CARDIAC ELECTROPHYSIOLOGY 08/27/24 Jamie Desir NP [address] [place] [address] Nurse Practitioner NURSE PRACTITIONER 08/27/24 documented as of this encounter
--- OUTSIDE RECORDS SUMMARY | 2025-03-16 12:37 | XMS_ITS | Encounter Summary ---
Author Organization [facility] Address [facility] [place] [address] Care Team Providers Care Early Head Start Teacher Name Role Phone Armando Stephens MD Primary Care Provider [phone] Chase Walsh MD Unavailable [phone] Petra Pineda MD, Dell Unavailable [phone] Jewel aHwthorne MD Unavailable [phone] Salvatore Yeboah MD Unavailable [phone] Jamie Desir NP Unavailable [phone] Encounter Details Date Type Department Care Team (Late st Contact Info) Description 01/28/2015 [facility] Conversion , Generic Conversion, Social History Tobacco Use Types Packs/Day Years Used Date Smoking Tobacco: Never Assessed Comments Unknown Sex and Gender Information Value Date Recorded Sex Assigned at Female 11/03/2024 2:01 PM CDT Legal Sex Female 11:53 PM CDT Gender Identity Not on file Sexual Orientation Not on file documented as of this encounter Plan of Treatment Upcoming Encounters Date Type Department Care Team (Late st Contact Info) Description 04/12/2025 1:00 AM ONION TOPPER Allied Health/Nurse Visit [facility] [address] [place] [address] Salvatore Yeboah MD 619 [facility] [address] [address] 06/08/2025 9:45 AM CDT Allied Health/Nurse Visit [facility] [address] [place] [phone] Salvatore Yeboah MD [address] [place] [address] 06/08/2025 9:45 AM CDT Office Visit [address] [phone] Salvatore Yeboah MD [address] [address] documented as of this encounter Visit Diagnoses Not on filedocumented in this encounter Additional Health Concerns Infection Onset Date Last Indicated Resolved Time COVID-19 Rule Out 09/23/2019 09/29/2019 09/30/2019 6:28 PM CDT documented as of this encounter Care Teams Early Head Start Teacher Relationship Specialty Start Date End Date Armando Stephens MD [address] [place] [address] PCP - General PEDIATRICS 09/26/15 Chase Walsh MD [address] [place] [phone] [place] Hair Tinter CARDIOVASCULAR DISEASE 01/28/17 08/26/24 Dell Lambert MD [address] [place], [place] [phone] [place] Hair Tinter CARDIOVASCULAR DISEASE 04/30/17 Jewel Hawthorne MD [address] [place], [place] [phone] EP Hair Tinter CARDIOVASCULAR DISEASE 07/24/21 11/27/22 Salvatore Yeboah MD 619 [facility] [address] [place] [address] Consulting Physician CLINICAL CARDIAC ELECTROPHYSIOLOGY 08/27/24 Jamie Desir NP 6[address] [place] [address] Nurse Practitioner NURSE PRACTITIONER 08/27/24 documented as of this encounter
--- NOTE | 2025-03-16 13:19 | CY_PTH ---
PATIENT: Ial Marks LOC: [facility] U#:[id number] AGE/SX: 49/F ROOM: RE03/16/[address]: Armando Stephens MD : 1975 BED: DIS: 03/16/2025 SPEC #: [id number] RECD: 03/16/25 13:32 STATUS: PRISCILA RE #: [id number] SAQIB: 03/16/25 13:[address]: Armando Stehpens DEPT: [facility] Cytology RECD BY: Maria Antonia Gaxiola Tissues: A - FNA Thyroid Procedures: Hematoxylin and Eosin Stain Cell Block Fine Needle Aspiration Evaluation Fine Needle Aspiration Pathologist Comments: The case was reviewed with Dr. Rivers. He agreed that the specimen was extremely atypical and that he was fine with the [place] designation of .
== END 2025-03-16 12:12 | disposition home or self-care (01) ==
PROVIDERS: PCP Pediatrics; Visit Provider Pediatrics
DX: C73 Malignant neoplasm of thyroid gland (principal); E04.1 Nontoxic single thyroid nodule
CPT/HCPCS: 10005; 88172; 88173; 88305